=== PATIENT | male | born 1980 | race Caucasian/White ===

== ENCOUNTER 2017-01-11 23:54 | Inpatient (IN) | payer MEDICAID, OTHER ==
[2017-01-12] MEDS ORDERED: Sodium Chloride 0.9% 1,000 ML IV ONE ×2 (00:23→03:28)
--- NOTE | 2017-01-12 00:23 | C.PDOC ---
History Of Present Illness Patient presents to the ER with a complaint of mid epigastric tenderness after drinking over the weekend, associated with some nausea. Denies vomiting, fever, or chills. Time Seen by Provider: 01/12/17 00:22 Chief Complaint (Nursing): Abdominal Pain History Per: Patient History/Exam Limitations: no limitations Onset/Duration Of Symptoms: Days Current Symptoms Are (Timing): Still Present Severity: Moderate Pain Scale Rating Of: 4 Location Of Pain/Discomfort: Epigastric Radiation Of Pain To:: None Quality Of Discomfort: Unable To Describe Associated Symptoms: Nausea. denies: Fever, Chills, Vomiting Exacerbating Factors: None Alleviating Factors: None Last Bowel Movement: Yesterday Recent travel outside of the [place]: No Additional History Per: Patient Past Medical History Reviewed: Historical Data, Nursing Documentation, Vital Signs Vital Signs: Last Vital Signs Temp 97.6 F 01/12/17 02:11 Pulse 82 01/12/17 02:11 Resp 20 01/12/17 02:11 BP 129/76 01/12/17 02:11 Pulse Ox 97 01/12/17 02:11 - Medical History PMH: No Chronic Diseases Surgical History: No Surg Hx Family History: States: No Known Family Hx - Social History Hx Alcohol Use: Yes Hx Substance Use: No - Immunization History Hx Tetanus Toxoid Vaccination: No Hx Influenza Vaccination: No Hx Pneumococcal Vaccination: No Review Of Systems Constitutional: Negative for: Fever, Chills ENT: Negative for: Throat Pain Cardiovascular: Negative for: Chest Pain Respiratory: Negative for: Shortness of Breath Gastrointestinal: Positive for: Nausea, Abdominal Pain. Negative for: Vomiting Genitourinary: Negative for: Dysuria Musculoskeletal: Negative for: Back Pain Skin: Negative for: Rash, Lesions Neurological: Negative for: Weakness Psych: Negative for: Anxiety Physical Exam - Physical Exam Appears: Non-toxic Skin: Warm, Dry Head: Normacephalic Eye(s): bilateral: Normal Inspection Oral Mucosa: Moist Neck: Supple Chest: Symmetrical Cardiovascular: Rhythm Regular Respiratory: No Rales, No Rhonchi, No Wheezing Gastrointestinal/Abdominal: Soft, Tenderness (Mid epigastric), No Guarding, No Rebound Back: No CVA Tenderness Extremity: Normal ROM Extremity: Bilateral: Atraumatic, Normal Color And Temperature, Normal ROM Pulses: Left Dorsalis Pedis: Normal, Right Dorsalis Pedis: Normal Neurological/Psych: Oriented x3, Normal Speech, Normal Cognition Gait: Steady ED Course And Treatment - Laboratory Results Result Diagrams: 01/12/17 00:38 01/12/17 00:38 O2 Sat by Pulse Oximetry: 98 (Room air) Pulse Ox Interpretation: Normal Progress Note: CT abd/pel, blood work, and urinalysis ordered. Pepcid, toradol, zofran, and IV fluids administered. Disposition Discussed With Dr.: Jose J Fitzpatrick Comment: accepted the pt on his service and took over the care at 3:31 AM Doctor Will See Patient In The: ED Counseled Patient/Family Regarding: Studies Performed, Diagnosis - Disposition Referrals: Non [facility] Provider, [Primary Care Provider] - Disposition: HOSPITALIZED Disposition Time: 00:22 Condition: FAIR Forms: [facility] (Macedonian) - POA Present On Arrival: None - Clinical Impression Clinical Impression: Abdominal pain, Acute appendicitis, Pancreatitis, Elevated liver enzymes - Scribe Statement The provider has reviewed the documentation as recorded by the Scribe Chuck Lowery All medical record entries made by the Scribe were at my direction and personally dictated by me. I have reviewed the chart and agree that the record accurately reflects my personal performance of the history, physical exam, medical decision making, and the department course for this patient. I have also personally directed, reviewed, and agree with the discharge instructions and disposition. Decision To Admit - Pt Status Changed To: Hospital Disposition Of: Inpatient - Admit Certification Admit to Inpatient:: After my assessment, the patient will require hospitalization for at least two midnights. This is because of the severity of symptoms shown, intensity of services needed, and/or the medical risk in this patient being treated as an outpatient. - InPatient: Physician Admission Certification:: After my assessment, the patient will require hospitalization for at least two midnights. This is because of the severity of symptoms shown, intensity of services needed, and/or the medical risk in this patient being treated as an outpatient. - . Bed Request Type: Regular Admitting Physician: Jose J Fitzpatrick Patient Diagnosis: Abdominal pain, Acute appendicitis, Pancreatitis, Elevated liver enzymes
[2017-01-12 00:41] LABS: BASO % 0.5 % (0.0-2.0); EOS % 0.1 % (0.0-4.0); HEMATOCRIT 47.1 % (35.0-51.0); LYMPH # 0.6 K/uL (1.0-4.3); MEAN CELL VOLUME 98.9 fL (80.0-94.0); MEAN CORPUSCULAR HGB CONC 34.4 g/dL (33.0-37.0); MONO # 0.7 K/uL (0.0-0.8); MONO % 7.5 % (0.0-10.0); PLATELET COUNT 145 K/uL (130-400); RED CELL DISTRIBUTION WIDTH 14.6 % (11.5-14.5); WHITE BLOOD COUNT 9.5 K/uL (4.8-10.8)
[2017-01-12 00:46] LABS: RBC URINE 3 /hpf (0-3); URINE BILIRUBIN NEGATIVE (NEGATIVE); URINE BLOOD NEGATIVE (NEGATIVE); URINE GLUCOSE (UA) NORMAL (Normal); URINE KETONE 1+ mg/dL (NEGATIVE); URINE LEUKOCYTE ESTERASE NEG Leu/uL (Negative); URINE PROTEIN 2+ mg/dL (NEGATIVE)
[2017-01-12 01:03] LABS: URINE COLOR ORANGE (YELLOW)
[2017-01-12 01:09] LABS: CHLORIDE 95 mmol/L (98-107); GFR AFRICAN-AMERICAN > 60; POTASSIUM 3.9 mmol/L (3.6-5.2); SODIUM 134 mmol/L (132-148)
[2017-01-12 01:10] LABS: ALB/GLOB RATIO 1.1 (1.0-2.1); ALCOHOL SERUM < 10 mg/dl (0-10); ALKALINE PHOSPHATASE 82 U/L (38-126); ALT/SGPT 899 U/L (21-72); BILIRUBIN,TOTAL 3.2 mg/dL (0.2-1.3); BLOOD UREA NITROGEN 9 mg/dL (9-20); CALCIUM 9.4 mg/dl (8.6-10.4); CARBON DIOXIDE 25 mmol/L (22-30); GLUCOSE,RANDOM 125 mg/dL (75-110); NEUTROPHIL 78 % (50-75); TOTAL CELLS COUNTED 100; TOTAL PROTEIN 9.1 g/dL (6.3-8.3)
[2017-01-12 01:22] LABS: AST/SGOT 1180 U/L (17-59)
[2017-01-12] MEDS ORDERED: Iodixanol 320 MG/ML 100 ML BOTTLE IV ONE (02:09)
--- NOTE | 2017-01-12 03:07 | CT ---
EXAM: CT Abdomen and Pelvis With Intravenous Contrast CLINICAL HISTORY: 36 years old, male; Pain; Abdominal pain; Additional info: Abd pain, elevated lipase TECHNIQUE: Axial computed tomography images of the abdomen and pelvis with intravenous contrast. All CT scans at this facility use one or more dose reduction techniques, viz.: automated exposure control; ma/kV adjustment per patient size (including targeted exams where dose is matched to indication; i.e. head); or iterative reconstruction technique. Coronal and sagittal reformatted images were created and reviewed. CONTRAST: 100 mL of [id number] administered intravenously. COMPARISON: No relevant prior studies available. FINDINGS: Lower thorax: The bilateral lung bases are clear. ABDOMEN: Liver: No acute findings. Gallbladder and bile ducts: The gallbladder is decompressed. No calcified stones. No significant intra- or extrahepatic biliary ductal dilation. Pancreas: Enhances homogeneously. No ductal dilation. No discrete mass. Spleen: No acute findings. Adrenals: No acute findings. Kidneys and ureters: No acute findings. No hydronephrosis or renal calculi. No discrete solid mass. PELVIS: Bladder: No acute findings. Reproductive: No acute findings. Appendix: The appendix is distended and fluid-filled, and measuring up to 10 mm in width. Trace surrounding periappendiceal inflammation is noted. The appendix is best visualized on series 601, image 57. Trace free fluid within the right paracolic gutter. ABDOMEN and PELVIS: Stomach and bowel: No obstruction. No mucosal thickening. Peritoneum: As above. Lymph nodes: No pathologically enlarged lymph nodes. Vasculature: Unremarkable. Bones: No acute fracture. IMPRESSION: Findings (in the appropriate clinical scenario) which suggest the presence of acute/early appendicitis, for which clinical correlation is needed.
[2017-01-12] MEDS ORDERED: Piperacillin/Tazobact 3.375 gm 100 ML IVPB STA (03:30)
[2017-01-12] MEDS ORDERED: Piperacillin/Tazobact 3.375 gm 100 ML IVPB ONE (03:48)
[2017-01-12] MEDS ORDERED: Sodium Chloride 0.9% 1,000 ML ONE (03:48)
--- NOTE | 2017-01-12 04:40 | CP.PCM.CON ---
Addendum entered and electronically signed by Rachana Wesley 01/12/17 06:23 : Appendicitis: started Ciprofloxacin 400mg IV Q12h and Metronizadole 500mg IV Q8h. Original Note: <Rachana Wesley. - Last Filed: 01/12/17 05:11> History of Present Illness - History of Present Illness History of Present Illness: Patient is a 36 year old male with a past medical history of alcohol abuse, who presents to the ED with abdominal pain. The patient reports he has had intermittent mild abdominal pain for one month. He states it is only "a little pain" midline below his umbilicus and does not radiate. Patient also states he currently has tremors, 3 episodes of vomiting today, dizziness, headaches, decreased appetite, and two weeks of loose stool. Patient admits to drinking 1 liter of rum daily for the past two weeks. He says he drank 1 bottle starting at noon on Tuesday before coming to the hospital. Patient reports that he drinks heavily about every 3 months. Patient denies having chest pain, palpitations, shortness of breath, nausea, fevers, hemoptysis, dysuria, blood in stool, and cough. 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 absent: Chills, Fever, Weight Gain, Weight Loss - EENT Eyes: absent: Change in Vision Ears: Dizziness - Cardiovascular Cardiovascular: Diaphoresis. absent: Chest Pain, Dyspnea, Leg Edema, Palpitations - Respiratory Respiratory: absent: Cough, Dyspnea - Gastrointestinal Gastrointestinal: Abdominal Pain (midline, below umbilicus), Diarrhea (2 weeks of loose stool), Vomiting (3 episodes). absent: Constipation, Nausea - Genitourinary Genitourinary: absent: Dysuria, Urinary Frequency - Neurological Neurological: Dizziness, Tremor, Weakness. absent: Abnormal Gait, Loss of Vision - Endocrine Endocrine: absent: Fatigue, Palpitations Past Patient History - Past Social History Smoking Status: Never Smoked - PSYCHIATRIC Hx Substance Use: No - SURGICAL HISTORY Hx Surgeries: No - ANESTHESIA Hx Anesthesia: No Meds Allergies/Adverse Reactions: Allergies Allergy/AdvReac Type Severity Reaction Status Date / Time No Known Allergies Allergy Unverified 01/11/17 23:59 Physical Exam - Constitutional Appears: No Acute Distress - Head Exam Head Exam: ATRAUMATIC, NORMAL INSPECTION - Eye Exam Eye Exam: EOMI Pupil Exam: PERRL - ENT Exam ENT Exam: Mucous Membranes Moist - Respiratory Exam Respiratory Exam: Clear to Auscultation Bilateral, NORMAL BREATHING PATTERN. absent: Rhonchi, Wheezes, Respiratory Distress - Cardiovascular Exam Cardiovascular Exam: REGULAR RHYTHM, +S1, +S2. absent: Bradycardia, Tachycardia - GI/Abdominal Exam GI & Abdominal Exam: Firm, Normal Bowel Sounds, Tenderness (midline, below umbilicus). absent: Distended, Guarding, Mass, Rebound, Rigid - Extremities Exam Extremities exam: Positive for: normal inspection, pedal pulses present. Negative for: calf tenderness, pedal edema, tenderness - Neurological Exam Neurological exam: Alert, Oriented x3 - Psychiatric Exam Psychiatric exam: Normal Affect, Normal Mood - Skin Skin Exam: Diaphoretic, Intact, Normal Color, Warm Results - Vital Signs Recent Vital Signs: Last Vital Signs Temp 97.4 F L 01/12/17 04:19 Pulse 77 01/12/17 04:19 Resp 20 01/12/17 04:19 BP 152/89 H 01/12/17 04:19 Pulse Ox 99 01/12/17 04:19 - Labs Result Diagrams: 01/12/17 00:38 01/12/17 00:38 Labs: Laboratory Results - last 24 hr 01/12/17 01/12/17 01/12/17 00:38 00:38 00:38 WBC 9.5 RBC 4.76 Hgb 16.2 Hct 47.1 MCV 98.9 H D MCH 34.0 H MCHC 34.4 RDW 14.6 H Plt Count 145 MPV 10.0 Neut % (Auto) 85.9 H Lymph % (Auto) 6.0 L Hinds % (Auto) 7.5 Eos % (Auto) 0.1 Baso % (Auto) 0.5 Neut # 8.2 H Lymph # 0.6 L Hinds # 0.7 Eos # 0.0 Baso # 0.0 Neutrophils % (Manual) 78 H Band Neutrophils % 4 H Lymphocytes % (Manual) 8 L Monocytes % (Manual) 10 Platelet Estimate Normal Sodium 134 Potassium 3.9 Chloride 95 L Carbon Dioxide 25 Anion Gap 18 BUN 9 Creatinine 0.7 L Est GFR ( Amer) > 60 Est GFR (Non-Af Amer) > 60 Random Glucose 125 H Calcium 9.4 Total Bilirubin 3.2 H AST 1180 H ALT 899 H D Alkaline Phosphatase 82 Total Protein 9.1 H Albumin 4.9 Globulin 4.3 H Albumin/Globulin Ratio 1.1 Lipase 1068 H Urine Color Treasure Urine Clarity Clear Urine pH 7.0 Ur Specific [place] 1.026 Urine Protein 2+ H Urine Glucose (UA) Normal Urine Ketones 1+ H Urine Blood Negative Urine Nitrate Negative Urine Bilirubin Negative Urine Urobilinogen 4.0 Ur Leukocyte Esterase Neg Urine RBC (Auto) 3 Ur Squamous Epith Cells < 1 Urine Opiates Screen Urine Methadone Screen Ur Barbiturates Screen Ur Phencyclidine Scrn Ur Amphetamines Screen U Benzodiazepines Scrn U Oth Cocaine Metabols U Cannabinoids Screen Alcohol, Quantitative < 10 01/12/17 00:38 WBC RBC Hgb Hct MCV MCH MCHC RDW Plt Count MPV Neut % (Auto) Lymph % (Auto) Hinds % (Auto) Eos % (Auto) Baso % (Auto) Neut # Lymph # Hinds # Eos # Baso # Neutrophils % (Manual) Band Neutrophils % Lymphocytes % (Manual) Monocytes % (Manual) Platelet Estimate Sodium Potassium Chloride Carbon Dioxide Anion Gap BUN Creatinine Est GFR ( Amer) Est GFR (Non-Af Amer) Random Glucose Calcium Total Bilirubin AST ALT Alkaline Phosphatase Total Protein Albumin Globulin Albumin/Globulin Ratio Lipase Urine Color Urine Clarity Urine pH Ur Specific [place] Urine Protein Urine Glucose (UA) Urine Ketones Urine Blood Urine Nitrate Urine Bilirubin Urine Urobilinogen Ur Leukocyte Esterase Urine RBC (Auto) Ur Squamous Epith Cells Urine Opiates Screen Negative Urine Methadone Screen Negative Ur Barbiturates Screen Negative Ur Phencyclidine Scrn Negative Ur Amphetamines Screen Negative U Benzodiazepines Scrn Negative U Oth Cocaine Metabols Negative U Cannabinoids Screen Negative Alcohol, Quantitative Assessment & Plan (1) Acute appendicitis Assessment and Plan: Abdominal/pelvic CT: appendix is distended, fluid-filled, 10mm in width; trace periappendiceal inflammation noted; trace free fluid within right paracolic gutter; suggestive of acute/early appendicitis Lipase: 1068 AST: 1180 ALT: 899 UA: 2+ protein, 1+ ketones Pre-op clearance--> Keep NPO; hold anticoagulation EKG: nsr@73bpm CXR: f/u results Scheduled for the OR with Dr. Fitzpatrick 01/12/17 Status: Acute (2) Alcohol abuse Assessment and Plan: CIWA Started Ativan 1mg PO Q4PRN Started Multivitamins + Folic Acid + Thiamine UDS: negative Alcohol quant <10 Status: Acute (3) Prophylactic measure Assessment and Plan: SCDs Hold anticoagulation Keep NPO Pepcid 20mg PO daily CIWA Status: Acute <Marc Escamilla - Last Filed: 01/12/17 06:46> Meds - Medications Medications: Current Medications Famotidine (Pepcid) 20 mg PO BID [facility]FR[facility]O Folic Acid (Folic Acid) 1 mg PO DAILY [facility]FR[facility] Ciprofloxacin (Cipro 400mg/200ml Dsw) 400 mg in 200 mls @ 133 mls/hr IVPB Q12H [facility] ALFREDO Metronidazole (Flagyl) 500 mg in 100 mls @ 100 mls/hr IVPB Q8H [facility] Last Admin: 01/12/17 06:10 Dose: 100 mls/hr Lorazepam (Ativan) 1 mg PO Q4H PRN PRN Reason: Symptoms of alcohol withdrawl Multivitamins (Hexavitamin) 1 tab PO DAILY [facility] Thiamine HCl (Vitamin B1 Tab) 100 mg PO DAILY [facility] Results - Vital Signs Recent Vital Signs: Last Vital Signs Temp 97.6 F 01/12/17 04:48 Pulse 85 01/12/17 05:35 Resp 20 01/12/17 05:35 BP 141/76 01/12/17 04:48 Pulse Ox 98 01/12/17 05:35 - Labs Result Diagrams: 01/12/17 00:38 01/12/17 00:38 Labs: Laboratory Results - last 24 hr 01/12/17 01/12/17 01/12/17 00:38 00:38 00:38 WBC 9.5 RBC 4.76 Hgb 16.2 Hct 47.1 MCV 98.9 H D MCH 34.0 H MCHC 34.4 RDW 14.6 H Plt Count 145 MPV 10.0 Neut % (Auto) 85.9 H Lymph % (Auto) 6.0 L Hinds % (Auto) 7.5 Eos % (Auto) 0.1 Baso % (Auto) 0.5 Neut # 8.2 H Lymph # 0.6 L Hinds # 0.7 Eos # 0.0 Baso # 0.0 Neutrophils % (Manual) 78 H Band Neutrophils % 4 H Lymphocytes % (Manual) 8 L Monocytes % (Manual) 10 Platelet Estimate Normal Sodium 134 Potassium 3.9 Chloride 95 L Carbon Dioxide 25 Anion Gap 18 BUN 9 Creatinine 0.7 L Est GFR ( Amer) > 60 Est GFR (Non-Af Amer) > 60 Random Glucose 125 H Calcium 9.4 Total Bilirubin 3.2 H AST 1180 H ALT 899 H D Alkaline Phosphatase 82 Total Protein 9.1 H Albumin 4.9 Globulin 4.3 H Albumin/Globulin Ratio 1.1 Lipase 1068 H Urine Color Treasure Urine Clarity Clear Urine pH 7.0 Ur Specific [place] 1.026 Urine Protein 2+ H Urine Glucose (UA) Normal Urine Ketones 1+ H Urine Blood Negative Urine Nitrate Negative Urine Bilirubin Negative Urine Urobilinogen 4.0 Ur Leukocyte Esterase Neg Urine RBC (Auto) 3 Ur Squamous Epith Cells < 1 Urine Opiates Screen Urine Methadone Screen Ur Barbiturates Screen Ur Phencyclidine Scrn Ur Amphetamines Screen U Benzodiazepines Scrn U Oth Cocaine Metabols U Cannabinoids Screen Alcohol, Quantitative < 10 01/12/17 00:38 WBC RBC Hgb Hct MCV MCH MCHC RDW Plt Count MPV Neut % (Auto) Lymph % (Auto) Hinds % (Auto) Eos % (Auto) Baso % (Auto) Neut # Lymph # Hinds # Eos # Baso # Neutrophils % (Manual) Band Neutrophils % Lymphocytes % (Manual) Monocytes % (Manual) Platelet Estimate Sodium Potassium Chloride Carbon Dioxide Anion Gap BUN Creatinine Est GFR ( Amer) Est GFR (Non-Af Amer) Random Glucose Calcium Total Bilirubin AST ALT Alkaline Phosphatase Total Protein Albumin Globulin Albumin/Globulin Ratio Lipase Urine Color Urine Clarity Urine pH Ur Specific [place] Urine Protein Urine Glucose (UA) Urine Ketones Urine Blood Urine Nitrate Urine Bilirubin Urine Urobilinogen Ur Leukocyte Esterase Urine RBC (Auto) Ur Squamous Epith Cells Urine Opiates Screen Negative Urine Methadone Screen Negative Ur Barbiturates Screen Negative Ur Phencyclidine Scrn Negative Ur Amphetamines Screen Negative U Benzodiazepines Scrn Negative U Oth Cocaine Metabols Negative U Cannabinoids Screen Negative Alcohol, Quantitative Assessment & Plan - Date & Time Date: 01/12/17 (I have seen and examined the patient. I agree with the findings and plan of care as documented by Dr. Wesley. Patient with acute appendicitis. Flagyl and Cipro. To be managed by Surgeon. Symptomatic treatment for now. Also with history of alcohol abuse. CIWA protocol as needed. Monitor for acute changes.) Time: 06:45 Attending/Attestation - Attestation I have personally seen and examined this patient.: Yes I have fully participated in the care of the patient.: Yes I have reviewed all pertinent clinical information: Yes
[2017-01-12] MEDS: metroNIDAZOLE IV 500 mg/100 ml 500 MG/100 ML BAG IVPB SCH ×3 (06:10→22:28)
[2017-01-12] MEDS ORDERED: Sodium Chloride 0.9% 1,000 ML IV SCH (07:00)
--- NOTE | 2017-01-12 07:03 | CP.PCM.PN ---
<Claudia Patel - Last Filed: 01/12/17 09:48> Subjective - Date & Time of Evaluation Date of Evaluation: 01/12/17 Time of Evaluation: 07:00 - Subjective Subjective: Medicine Note for Dr. Joe Goncalves Patient was seen and examined at bedside. Patient is NPO for lab appy today with Dr. Fitzpatrick. Denied any fever, chills, headache, chest pain, SOB, abdominal pain, n/v/d/c, or urinary symptoms. Objective - Vital Signs/Intake and Output Vital Signs (last 24 hours): Temp Pulse Resp BP Pulse Ox 97.6 F 85 20 141/76 98 01/12/17 04:48 01/12/17 05:35 01/12/17 05:35 01/12/17 04:48 01/12/17 05:35 - Medications Medications: Current Medications Famotidine (Pepcid) 20 mg PO BID LUIS ALFREDO Folic Acid (Folic Acid) 1 mg PO DAILY [facility] ALFREDO Ciprofloxacin (Cipro 400mg/200ml Dsw) 400 mg in 200 mls @ 133 mls/hr IVPB Q12H [facility] ALFREDO Metronidazole (Flagyl) 500 mg in 100 mls @ 100 mls/hr IVPB Q8H [facility] ALFREDO Last Admin: 01/12/17 06:10 Dose: 100 mls/hr Sodium Chloride (Sodium Chloride 0.9%) 1,000 mls @ 100 mls/hr IV .Q10H [facility] ALFREDO Lorazepam (Ativan) 1 mg PO Q4H PRN PRN Reason: Symptoms of alcohol withdrawl Multivitamins (Hexavitamin) 1 tab PO DAILY [facility] ALFREDO Thiamine HCl (Vitamin B1 Tab) 100 mg PO DAILY [facility] ALFREDO - Labs Labs: 01/12/17 00:38 01/12/17 00:38 - Additional Findings Additional findings: - Constitutional Appears: No Acute Distress - Head Exam Head Exam: ATRAUMATIC, NORMAL INSPECTION - Eye Exam Eye Exam: EOMI Pupil Exam: PERRL - ENT Exam ENT Exam: Mucous Membranes Moist - Respiratory Exam Respiratory Exam: Clear to Auscultation Bilateral, NORMAL BREATHING PATTERN. absent: Rhonchi, Wheezes, Respiratory Distress - Cardiovascular Exam Cardiovascular Exam: REGULAR RHYTHM, +S1, +S2. absent: Bradycardia, Tachycardia - GI/Abdominal Exam GI & Abdominal Exam: Firm, Normal Bowel Sounds, Tenderness (midline, below umbilicus). absent: Distended, Guarding, Mass, Rebound, Rigid - Extremities Exam Extremities exam: Positive for: normal inspection, pedal pulses present. Negative for: calf tenderness, pedal edema, tenderness - Neurological Exam Neurological exam: Alert, Oriented x3 - Psychiatric Exam Psychiatric exam: Normal Affect, Normal Mood Assessment and Plan - Assessment and Plan (Free Text) Plan: Acute appendicitis NPO. Scheduled for the OR with Dr. Fitzpatrick 01/12/17 afebrile, no leukocytosis, left shift with bandemia Abdominal/Pelvis CT: appendix is distended, fluid-filled, 10mm in width; trace periappendiceal inflammation noted; trace free fluid within right paracolic gutter; suggestive of acute/early appendicitis Lipase: 1068, T. Bili 3.2, with transaminitis Started Ciprofloxacin 400mg IV Q12h and Metronizadole 500mg IV Q8h 01/12/17 Pre-op clearance Keep NPO; hold anticoagulation EKG: NSR@73bpm CXR: f/u results Coags ordered Alcohol abuse CIWA Started Ativan 1mg PO Q4PRN Started NS + Multivitamins + Folic Acid + Thiamine UDS: negative Alcohol quant <10 Transaminitis AST/ALT: 1180/899 Continue to monitor F/U hep panel/ HIV Pancreatitis Lipase 1068 Started IV NS@200mls/hr Elevated Total Bilirubin Total Bilirubin 3.2 Continue to monitor Prophylactic measure GI PPX: Pepcid 20mg PO daily DVT PPX:SCDs, Hold anticoagulation Kept NPO DW Amanda Romeo DO, PGY-1 <Yoshi Goncalves - Last Filed: 01/12/17 18:58> Objective - Vital Signs/Intake and Output Vital Signs (last 24 hours): Temp Pulse Resp BP Pulse Ox 97.9 F 67 19 130/70 100 01/12/17 17:58 01/12/17 18:45 01/12/17 18:45 01/12/17 18:45 01/12/17 18:45 - Medications Medications: Current Medications Famotidine (Pepcid) 20 mg PO BID [facility] Last Admin: 01/12/17 09:12 Dose: 20 mg Folic Acid (Folic Acid) 1 mg PO DAILY [facility] Last Admin: 01/12/17 09:12 Dose: 1 mg Hydromorphone HCl (Dilaudid) 0.5 mg IVP Q5M PRN PRN Reason: Pain, severe (8-10) Stop: 01/12/17 20:01 Ciprofloxacin (Cipro 400mg/200ml Dsw) 400 mg in 200 mls @ 133 mls/hr IVPB Q12H [facility] Last Admin: 01/12/17 07:32 Dose: 133 mls/hr Metronidazole (Flagyl) 500 mg in 100 mls @ 100 mls/hr IVPB Q8H [facility] Last Admin: 01/12/17 13:27 Dose: 100 mls/hr Sodium Chloride (Sodium Chloride 0.9%) 1,000 mls @ 200 mls/hr IV .Q5H [facility] Last Admin: 01/12/17 09:49 Dose: 200 mls/hr Lorazepam (Ativan) 1 mg PO Q4H PRN PRN Reason: Symptoms of alcohol withdrawl Midazolam HCl (Versed Inj) 4 mg IVP ONCE PRN PRN Reason: Agitation/Restlessness Last Admin: 01/12/17 18:08 Dose: 4 mg Morphine Sulfate (Morphine) 1 mg IVP Q4H PRN PRN Reason: Pain, moderate (4-7) Multivitamins (Hexavitamin) 1 tab PO DAILY [facility] Last Admin: 01/12/17 09:12 Dose: 1 tab Thiamine HCl (Vitamin B1 Tab) 100 mg PO DAILY [facility] Last Admin: 01/12/17 09:12 Dose: 100 mg - Labs Labs: 01/12/17 00:38 01/12/17 00:38 Attending/Attestation - Attestation I have personally seen and examined this patient.: Yes I have fully participated in the care of the patient.: Yes I have reviewed all pertinent clinical information, including history, physical exam and plan: Yes Notes (Text): 01/12/17 18:57 Patient was seen at 7:45 AM 01/12/17. Exam, Assessment and Plan were thoroughly gone over with the resident. Yoshi Goncalves D.O.
[2017-01-12] MEDS: Ciprofloxacin 400mg/200ml D5W 400 MG/200 ML BAG IVPB SCH ×2 (07:32→20:35)
--- NOTE | 2017-01-12 08:49 | RAD ---
HISTORY: pre-op clearance COMPARISON: Abdomen obstructive series with chest 09/08/2015. FINDINGS: LUNGS: No active pulmonary disease. PLEURA: No significant pleural effusion identified, no pneumothorax apparent. CARDIOVASCULAR: Normal. OSSEOUS STRUCTURES: No significant abnormalities. VISUALIZED UPPER ABDOMEN: Right hemidiaphragm elevation is noted in the interval of uncertain origin. OTHER FINDINGS: None. IMPRESSION: No acute infiltrate or pleural effusion bilaterally. No cardiovascular pathology appreciated grossly. Right diaphragm elevation is noted, of uncertain origin.
[2017-01-12] MEDS: Multiple Vitamins Tab PO SCH (09:12)
[2017-01-12] MEDS: Sodium Chloride 0.9% 1,000 ML IV SCH ×2 (09:49→23:33)
[2017-01-12] MEDS ORDERED: Lactated Ringer's 1,000 ML IV ONE ×2 (16:45→18:45)
[2017-01-12] MEDS ORDERED: Propofol 10 mg/ml Inj (20 ML) ONE ×2 (16:55→17:21)
[2017-01-12] MEDS ORDERED: Midazolam 2 MG/2 ML VIAL ONE ×3 (16:55→18:08)
[2017-01-12] MEDS ORDERED: Bupivacaine HCl 0.25% PF (10 ml) Inj ONE (17:03)
[2017-01-12] MEDS ORDERED: Neostigmine Methylsulfate 3mg/3ml Syringe IV ONE (17:39)
[2017-01-12] MEDS ORDERED: HYDROmorphone 0.5 mg/0.5 ml ISec IVP PRN (18:01)
[2017-01-12] MEDS ORDERED: Midazolam 2 MG/2 ML VIAL IVP PRN (18:01)
[2017-01-13] MEDS: Sodium Chloride 0.9% 1,000 ML IV SCH ×4 (00:45→21:25)
--- NOTE | 2017-01-13 02:39 | OP ---
PROCEDURE DATE: 01/12/2017 PREOPERATIVE DIAGNOSIS: Acute appendicitis. POSTOPERATIVE DIAGNOSIS: Acute appendicitis. PROCEDURE PERFORMED: Appendectomy. SURGEON: Jose J Fitzpatrick MD TYPE OF ANESTHESIA: General. ESTIMATED BLOOD LOSS: 30 mL. POSTOPERATIVE CONDITION: Stable. INDICATIONS FOR SURGERY: This is a 36-year-old male who presented with a right lower quadrant pain, found to have appendicitis on CAT scan, now taken to the operating room on the day of admission for appendectomy. GROSS FINDINGS: The appendix was acutely inflamed. There were no abnormal findings. Because of preexisting liver disease, it was felt that an open appendectomy would be quicker with less anesthesia time. DESCRIPTION OF PROCEDURE: The patient was taken to the operating room, general anesthesia was administered. The abdomen was prepped and draped. The abdomen was entered through a transverse muscle splitting incision in the right lower quadrant. The appendix was divided between clamps with Vicryl ties. The base of the appendix was divided using TA-30 stapler. The right lower quadrant was irrigated with the saline solution. The abdominal wall incision was closed with running Vicryl and the skin was closed with skin clips. The patient tolerated the procedure well, returned to recovery room in stable condition. Jose J Fitzpatrick MD
[2017-01-13] MEDS: metroNIDAZOLE IV 500 mg/100 ml 500 MG/100 ML BAG IVPB SCH ×2 (05:18→14:18)
--- NOTE | 2017-01-13 06:59 | CP.PCM.PN ---
Addendum entered and electronically signed by Claudia Patel DO 01/13/17 09:57 : Medicine team will continue to follow this patient while he is on med/surg floor. As per psychiatry possible transfer tomorrow to detox. Addendum entered and electronically signed by Claudia Patel DO 01/13/17 09:05 : Patient is actively, withdrawing from alcohol. We started an Ativan Taper. And we would like to transfer him to psychiatry for detox. Psych consult - Dr. Hong - help appreciated Original Note: <Claudia Patel - Last Filed: 01/13/17 08:49> Subjective - Date & Time of Evaluation Date of Evaluation: 01/13/17 Time of Evaluation: 07:00 - Subjective Subjective: Medicine Note for Dr. Joe Goncalves Patient was seen and examined at bedside. Patient is s/p appendectomy. Patient reports pain is well controlled, tolerating liquid diet. Denied any fever, chills, headache, chest pain, SOB, abdominal pain, n/v/d/c, or urinary symptoms. Objective - Vital Signs/Intake and Output Vital Signs (last 24 hours): Temp Pulse Resp BP Pulse Ox 99.9 F H 97 H 20 129/80 96 01/12/17 23:05 01/12/17 23:05 01/12/17 23:05 01/12/17 23:05 01/12/17 23:05 Intake and Output: 01/12/17 01/13/17 18:59 06:59 Intake Total 2100 Output Total 1200 Balance 900 - Medications Medications: Current Medications Famotidine (Pepcid) 20 mg PO BID [facility] Last Admin: 01/12/17 19:07 Dose: Not Given Folic Acid (Folic Acid) 1 mg PO DAILY [facility] Last Admin: 01/12/17 09:12 Dose: 1 mg Ciprofloxacin (Cipro 400mg/200ml Dsw) 400 mg in 200 mls @ 133 mls/hr IVPB Q12H [facility] Last Admin: 01/12/17 20:35 Dose: 133 mls/hr Metronidazole (Flagyl) 500 mg in 100 mls @ 100 mls/hr IVPB Q8H [facility] Last Admin: 01/13/17 05:18 Dose: 100 mls/hr Sodium Chloride (Sodium Chloride 0.9%) 1,000 mls @ 200 mls/hr IV .Q5H [facility] Last Admin: 01/13/17 05:17 Dose: 200 mls/hr Lorazepam (Ativan) 1 mg PO Q4H PRN PRN Reason: Symptoms of alcohol withdrawl Last Admin: 01/13/17 06:22 Dose: 1 mg Midazolam HCl (Versed Inj) 4 mg IVP ONCE PRN PRN Reason: Agitation/Restlessness Last Admin: 01/12/17 18:08 Dose: 4 mg Morphine Sulfate (Morphine) 1 mg IVP Q4H PRN PRN Reason: Pain, moderate (4-7) Multivitamins (Hexavitamin) 1 tab PO DAILY [facility] Last Admin: 01/12/17 09:12 Dose: 1 tab Thiamine HCl (Vitamin B1 Tab) 100 mg PO DAILY [facility] Last Admin: 01/12/17 09:12 Dose: 100 mg - Labs Labs: 01/12/17 00:38 01/12/17 00:38 - Additional Findings Additional findings: - Constitutional Appears: No Acute Distress - Head Exam Head Exam: ATRAUMATIC, NORMAL INSPECTION - Eye Exam Eye Exam: EOMI Pupil Exam: PERRL - ENT Exam ENT Exam: Mucous Membranes Moist - Respiratory Exam Respiratory Exam: Clear to Auscultation Bilateral, NORMAL BREATHING PATTERN. absent: Rhonchi, Wheezes, Respiratory Distress - Cardiovascular Exam Cardiovascular Exam: REGULAR RHYTHM, +S1, +S2. absent: Bradycardia, Tachycardia - GI/Abdominal Exam GI & Abdominal Exam: Firm, Normal Bowel Sounds, Tenderness (midline, below umbilicus). absent: Distended, Guarding, Mass, Rebound, Rigid - Extremities Exam Extremities exam: Positive for: normal inspection, pedal pulses present. Negative for: calf tenderness, pedal edema, tenderness - Neurological Exam Neurological exam: Alert, Oriented x3 - Psychiatric Exam Psychiatric exam: Normal Affect, Normal Mood Assessment and Plan - Assessment and Plan (Free Text) Plan: Acute appendicitis s/p appendectomy 01/12/17 afebrile, no leukocytosis, left shift with bandemia Abdominal/Pelvis CT: appendix is distended, fluid-filled, 10mm in width; trace periappendiceal inflammation noted; trace free fluid within right paracolic gutter; suggestive of acute/early appendicitis Lipase: 1068, T. Bili 3.2, with transaminitis Diet advanced as per Surgery, primary team Started Ciprofloxacin 400mg IV Q12h and Metronizadole 500mg IV Q8h 01/12/17 Pre-op clearance Keep NPO; hold anticoagulation EKG: NSR@73bpm CXR: f/u results Coags ordered Alcohol abuse CIWA Started Ativan 1mg PO Q4PRN Started NS + Multivitamins + Folic Acid + Thiamine UDS: negative Alcohol quant <10 Transaminitis AST/ALT: 1180/899 Downtrending Continue to monitor HIV- negative Hep panel- Hep Bs antigen +, + neutralization. Patient will need to follow up with GI for further workup and management of his Hepatitis B. Pancreatitis Lipase 1068 Started IV NS@200mls/hr Downtrending Elevated Total Bilirubin Total Bilirubin 3.2 Continue to monitor Downtrending Prophylactic measure GI PPX: Pepcid 20mg PO daily DVT PPX:SCDs, Hold anticoagulation Patient is medically stable for discharge once he tolerates his regular diet. Patient will need to follow up in the [facility] to establish care and receive a GI referral for further care and management of his Hepatitis B. Patient is recommended to attend Alcoholic Anonymous to encourage alcohol cessation. Medicine Team is signing off this patient. Thank you for the consult. DW Amanda Romeo DO, PGY-1 <Yoshi Goncalves - Last Filed: 01/13/17 17:58> Objective - Vital Signs/Intake and Output Vital Signs (last 24 hours): Temp Pulse Resp BP Pulse Ox 98.6 F 119 H 20 141/90 98 01/13/17 08:42 01/13/17 08:42 01/13/17 08:42 01/13/17 08:42 01/13/17 08:42 Intake and Output: 01/13/17 01/13/17 06:59 18:59 Intake Total 2100 Output Total 1200 Balance 900 - Medications Medications: Current Medications Famotidine (Pepcid) 20 mg PO BID [facility] Last Admin: 01/13/17 09:35 Dose: 20 mg Folic Acid (Folic Acid) 1 mg PO DAILY [facility] Last Admin: 01/13/17 09:35 Dose: 1 mg Ciprofloxacin (Cipro 400mg/200ml Dsw) 400 mg in 200 mls @ 133 mls/hr IVPB Q12H [facility] Last Admin: 10/19/17 08:18 Dose: 133 mls/hr Metronidazole (Flagyl) 500 mg in 100 mls @ 100 mls/hr IVPB Q8H [facility] Last Admin: 01/13/17 14:18 Dose: 100 mls/hr Sodium Chloride (Sodium Chloride 0.9%) 1,000 mls @ 200 mls/hr IV .Q5H [facility] Last Admin: 01/13/17 05:17 Dose: 200 mls/hr Lorazepam (Ativan) 1 mg IVP Q6H PRN PRN Reason: Symptoms of alcohol withdrawl Lorazepam (Ativan) 2 mg PO Q4H [facility] PRN Reason: Taper Stop: 01/18/17 10:59 Last Admin: 01/13/17 14:16 Dose: 2 mg Midazolam HCl (Versed Inj) 4 mg IVP ONCE PRN PRN Reason: Agitation/Restlessness Last Admin: 01/12/17 18:08 Dose: 4 mg Morphine Sulfate (Morphine) 1 mg IVP Q4H PRN PRN Reason: Pain, moderate (4-7) Multivitamins (Hexavitamin) 1 tab PO DAILY [facility] Last Admin: 01/13/17 09:35 Dose: 1 tab Thiamine HCl (Vitamin B1 Tab) 100 mg PO BID [facility] - Labs Labs: 01/13/17 06:45 01/13/17 06:45 PT 12.1 SECONDS (9.7-12.2) 01/13/17 06:45 INR 1.1 01/13/17 06:45 APTT 26 SECONDS (21-34) 01/13/17 06:45 Attending/Attestation - Attestation I have personally seen and examined this patient.: Yes I have fully participated in the care of the patient.: Yes I have reviewed all pertinent clinical information, including history, physical exam and plan: Yes Notes (Text): 01/13/17 17:55 Patient was seen and examined at 8:15 AM 01/13/17. Patient was tremulous and alcohol withdrawl was likely considering his history. Therefore he was started on Ativan Taper and Psychiatry was consulted. Will transfer to In-Patient Psychiatry on 08/14/[address] Fitzpatrick was notified by me via phone 5:50 PM and we will transfer service to Hospitalist Team if patient does agree to go to In-Patient Psychiatry. Dr. Fitzpatrick revealed that appendix was not gangrenous and therefore IV antibiotics were discontinued.
[2017-01-13 07:11] LABS: INR 1.1
[2017-01-13 07:30] LABS: BASO % 0.4 % (0.0-2.0); CHLORIDE 95 mmol/L (98-107); EOS % 0.2 % (0.0-4.0); HEMATOCRIT 45.3 % (35.0-51.0); LYMPH # 0.9 K/uL (1.0-4.3); LYMPH % 8.7 % (20.0-40.0); MEAN CORPUSCULAR HEMOGLOBIN 34.7 pg (27.0-31.0); MEAN CORPUSCULAR HGB CONC 34.3 g/dL (33.0-37.0); MEAN PLATELET VOLUME 10.1 fL (7.2-11.7); MONO # 1.1 K/uL (0.0-0.8); MONO % 10.4 % (0.0-10.0); PLATELET COUNT 153 K/uL (130-400); RED CELL DISTRIBUTION WIDTH 14.4 % (11.5-14.5); WHITE BLOOD COUNT 10.6 K/uL (4.8-10.8)
[2017-01-13 07:31] LABS: POTASSIUM 4.1 mmol/L (3.6-5.2); SODIUM 135 mmol/L (132-148)
[2017-01-13 07:33] LABS: ALB/GLOB RATIO 1.1 (1.0-2.1); AMYLASE 136 U/L (30-110); AST/SGOT 509 U/L (17-59); BILIRUBIN,TOTAL 2.7 mg/dL (0.2-1.3); BLOOD UREA NITROGEN 8 mg/dL (9-20); CARBON DIOXIDE 26 mmol/L (22-30); GFR AFRICAN-AMERICAN > 60; GLUCOSE,RANDOM 100 mg/dL (75-110); TOTAL PROTEIN 8.6 g/dL (6.3-8.3)
[2017-01-13 07:34] LABS: ALKALINE PHOSPHATASE 76 U/L (38-126); ALT/SGPT 672 U/L (21-72); CALCIUM 9.1 mg/dl (8.6-10.4); MAGNESIUM 1.5 mg/dL (1.6-2.3); PHOSPHOROUS 4.2 mg/dL (2.5-4.5)
[2017-01-13 07:38] LABS: MEAN CELL VOLUME 100.9 fL (80.0-94.0)
[2017-01-13] MEDS: Ciprofloxacin 400mg/200ml D5W 400 MG/200 ML BAG IVPB SCH (08:18)
[2017-01-13 09:23] LABS: NEUTROPHIL 76 % (50-75); TOTAL CELLS COUNTED 100
[2017-01-13] MEDS: Multiple Vitamins Tab PO SCH (09:35)
--- NOTE | 2017-01-13 10:53 | PCM.PSYCH ---
Initial Psychiatric Evaluation - Initial Psychiatric Evaluation Type of Admission: Voluntary Chief Complaint (in patient's own words): "I'm tired" History of Present Illness and Precipitating Events: The patient is seen, chart reviewed and case discussed. Next line consultation was requested for patient's alcohol withdrawal. This is a 36-year-old male, single with 2 children aged 14 and 15 who are with their mother reviewed the patient first said he lives alone but there was a friend who he allowed us to speak to and she said that the patient has a girlfriend and lives with her. 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 He is documented and is from [facility]. The patient is a poor historian due to confusion from alcohol withdrawal and at the same time he minimizes his use and he only states that he drinks 4-5 beers over the weekend. His friend however told us that he drinks much more than that. He denies drug use but smokes cigarettes. No psychiatric symptoms. Currently, he is tremulous, somewhat diaphoretic and is confused: he thought he was at home and couldn;t tell the date, month, year. He was able to repeat 2 of the 3 words in immediate recall and none of them in 5 min. No nystagmus/severe ataxia. Past psych history: Denies. No reported past alcohol treatment either. Medical history: Appendectomy yesterday Family psych hx: Unknown Current Medications: Active Medications Generic Name Dose Route Start Last Admin Trade Name Freq PRN Reason Stop Dose Admin Famotidine 20 mg 01/12/17 10:00 01/13/17 09:35 Pepcid PO 20 mg BID [facility] Administration Folic Acid 1 mg 01/12/17 10:00 01/13/17 09:35 Folic Acid PO 1 mg DAILY [facility] Administration Ciprofloxacin 400 mg in 200 mls @ 133 mls/hr 01/12/17 08:00 01/13/17 08:18 Cipro 400mg/200ml Dsw IVPB 133 mls/hr Q12H [facility] Administration Metronidazole 500 mg in 100 mls @ 100 mls/hr 01/12/17 06:00 01/13/17 05:18 Flagyl IVPB 100 mls/hr Q8H [facility] Administration Sodium Chloride 1,000 mls @ 200 mls/hr 01/12/17 09:45 01/13/17 05:17 Sodium Chloride 0.9% IV 200 mls/hr .Q5H [facility] Administration Lorazepam 2 mg 01/13/17 10:00 01/13/17 09:35 Ativan PO 01/18/17 09:59 2 mg Q8H [facility] Administration Taper Lorazepam 1 mg 01/13/17 10:52 Ativan IVP Q6H PRN Symptoms of alcohol withdrawl Midazolam HCl 4 mg 01/12/17 18:01 01/12/17 18:08 Versed Inj IVP 4 mg ONCE PRN Administration Agitation/Restlessness Morphine Sulfate 1 mg 01/12/17 08:30 Morphine IVP Q4H PRN Pain, moderate (4-7) Multivitamins 1 tab 01/12/17 10:00 01/13/17 09:35 Hexavitamin PO 1 tab DAILY [facility] Administration Thiamine HCl 100 mg 01/12/17 10:00 01/13/17 10:31 Vitamin B1 Tab PO 100 mg DAILY [facility] Administration Past Psychiatric History - Past Psychiatric History Previous Treatment History: None Pertinent Medical Hx (Current Medical&Sleep Prob, Allergies): Allergies Allergy/AdvReac Type Severity Reaction Status Date / Time No Known Allergies Allergy Unverified 01/11/17 23:59 No Known Home Med 01/12/17 Review of Systems - Neurological Neurological: Confusion, Tremor - Psychiatric Psychiatric: Abnormal Sleep Pattern, Anxiety, Confusion. absent: Homicidal Ideation, Suicidal Ideation Mental Status Examination - Personal Presentation Personal Presentation: Looks stated age - Affect Affect: Constricted - Motor Activity Motor Activity: Other (fidgety) - Reliability in Providing Information Reliability in Providing Information: Poor, due to cognitve impairment - Speech Speech: Disorganized - Mood Mood: Anxious - Formal Thought Process Formal Thought Process: Hallucinations (possible) - Cognitive Functions Orientation: Person (He is only oriented to person, he knew his friend) Sensorium: Drowsy Attention/Concentration: Easily distracted Abstract Thinking: [place] Estimate of Intelligence: Below average Judgement: Imparied, as evidence by: Poor judgement Memory: Recent imparied as evidence by:Inability to complete 3/3 object recall, Remote impaired as evidenced by: Inability to recall historical events - Risk Risk: Elopement, Seizure, Withdrawal, Falls, Diminished functioning - Strength & Assets Inventory Strength & Assets Inventory: Family support, Cooperative - Limitations Limitations: Other DSM 5 DX - DSM 5 DSM 5 Diagnosis: Alcohol withdrawal delirium Alcohol use d/o - severe - Recommended/Plan of Treatment Treatment Recommendations and Plan of Treatment: Ativan detox due to liver: 12-8-6-4-2 mg decreasing fashion As needed medications Gabapentin for augmentation Supportive therapy and psychoeducation [place] for abstinence CBT for relapse prevention Encourage MAT Refer to rehab or IOP Attend self-help groups as well Consider transfer to detox IF he gets better AND agrees (he did not today) Consider IV fluids and ativan if gets worse 34 min
[2017-01-13] MEDS ORDERED: Magnesium Sulfate 1 gm in D5W 1 GM/100 ML BAG IVPB ONE (18:00)
[2017-01-14] MEDS: Sodium Chloride 0.9% 1,000 ML IV SCH ×3 (00:15→08:02)
[2017-01-14] MEDS: Multiple Vitamins Tab PO SCH (10:17)
--- NOTE | 2017-01-14 10:25 | PCM.PYCHPN ---
Psychiatric Progress Note - Psychiatric Progress Note Patient seen today, length of contact: 16 min Patient Chief Complaint: Seen for consult follow up. No response to c/c Problems Identified/Issues Discussed: The pt is seen, chart reviewed and case discussed He is in DT right now: totally confused (he even does NOT recall he had appendectomy the day before yesterday), disoriented, agitated, poor sleep, diaphoretic, etc. Ativan detox is switched to IV protocol as he is spitting pills. Haldol given as yumiko lawson was called, he was combative. Will monitor VS, response, hold ativan only if he is too sedated. Given vitamins also IV and iv fluids Support given Medication Change: Yes Medical Record Reviewed: Yes Mental Status Examination - Cognitive Function Orientation: Person (He is only oriented to person, he knew his friend) Memory: Impaired Attention: Poor Concentration: Poor Association: Loose Fund of Knowledge: Poor - Mood Mood: Other (agitated) - Affect Affect: Constricted - Speech Speech: Slurred - Formal Thought Process Formal Thought Process: Other (difficult to assess) - Suicidal Ideation Suicidal Ideation: No - Homicidal Ideation Homicidal Ideation: No Goal/Treatment Plan - Goal/Treatment Plan Need for Continued Stay: Other (medical tx of DT) Progress Toward Problem(s) and Goals/Treatment Plan: Ativan detox IV: 12-8-6-4-2 mg decreasing fashion As needed medications Gabapentin for augmentation whenPO is ok Supportive therapy and psychoeducation [place] for abstinence CBT for relapse prevention Encourage MAT Refer to rehab or IOP Attend self-help groups as well
--- NOTE | 2017-01-14 10:55 | CP.PCM.CON ---
History of Present Illness - History of Present Illness History of Present Illness: Hospitalist Progress Note Patient was seen and examined at 10:30 AM 01/14/17 662 A 36 year old male who is S/P Open Appendectomy on 01/12/[address] Fitzpatrick. He was scheduled to be discharged on 01/13/17 but was noted to be tremulous and this was likely secondary to Alcohol Withdrawl (drinks 1 liter of Rum daily with last liter on 01/11/17). Therefore Psychiatry was consulted and patient was placed on Ativan Taper. Patient became combative and trying to pull out his IV lines during the night 01/13/17 into 01/14/17 and therefore soft restraints with mittens were placed bilateral UE. Currenty upon FULL ROS (patient was asleep but arousable and calm and answering questions) NO chest pain NO palpitations NO SOB/Cough/Wheezing NO dysphagia/odynophagia NO abdominal pain NO n/v/d/c (last bowel movement was yesterday and it was normal) NO burning/pain with urination NO paresthesias NO headaches NO new changes in vision NO new changes in hearing NO edema Exam: General: Asleep but easily arousable. He is not aware of where he is or why he is here. He is following commands at the time of my exam HEENT: NCA, EOMI, PERRLA, NO lymphadenopathy, NO thyromegaly, NO pharyngeal erythema/exudate, Nasal Turbinates are moist and nonerythematous Cardio: NS1 and NS2, NO M/R/G Resp: CTA B/L, NO R/R/W GI: BSx4, Soft, NT, ND, NO HSM, NO guarding/rebound tenderness, RLQ Surgical Site is clean and without dehiscence/cellulitis Ext: Pulses are strong and equal, NO edema, Capillary Refill is 2 seconds Neuro: CN II through XII are grossly intact Assessment and Plan 1). S/P Open Appendectomy 01/12/[address] Fitzpatrick on evening of 01/13/17 and he explained that there was no necrosis of the appendix. Therefore IV antibiotics were discontinued. He will need follow up with Dr. Fitzpatrick upon discharge. 2). Alcohol Withdrawl Please see details in HPI above NPO for now Change IVF to Bannana Bag containing MVI, Folic Acid, and Thiamine @ 100 ml/hr Ativan Taper Once stable then transfer to [address] [place] [address] Dr. Hong help is greatly appreciated 3). Elevated LFTs/T.Bili/Lipase/Amylase NO pathology (other then the Appendicitis) noted on CT Abdomen/Pelvis 01/12/17: NO acute liver/gallbladder/pancrease abnormality Secondary to Appendicits? Trending down NPO and Bannana bag for now 4). Hepatitis B+ Patient will need follow up with GI through [facility]. 5). Prophylaxis Pepcid 20 mg PO BID Bilateral SCDs Yohsi Goncalves D.O. Past Patient History - Past Medical History & Family History Past Medical History?: No - Past Social History Smoking Status: Never Smoked - CARDIAC Hx Cardiac Disorders: No - PULMONARY Hx Respiratory Disorders: No - NEUROLOGICAL Hx Neurological Disorder: No - HEENT Hx HEENT Problems: Yes Hx Cataracts: Yes (L Eye) - RENAL Hx Chronic Kidney Disease: No - ENDOCRINE/METABOLIC Hx Endocrine Disorders: No - HEMATOLOGICAL/ONCOLOGICAL Hx Blood Disorders: No - INTEGUMENTARY Hx Dermatological Problems: No - MUSCULOSKELETAL/RHEUMATOLOGICAL Hx Musculoskeletal Disorders: No Hx Falls: No - GASTROINTESTINAL Hx Gastrointestinal Disorders: No - GENITOURINARY/GYNECOLOGICAL Hx Genitourinary Disorders: No - PSYCHIATRIC Hx Psychophysiologic Disorder: No Hx Substance Use: No - SURGICAL HISTORY Hx Surgeries: No - ANESTHESIA Hx Anesthesia: No Hx Anesthesia Reactions: No Hx Malignant Hyperthermia: No Has any member of the family had a problem w/ anesthesia?: No Meds Allergies/Adverse Reactions: Allergies Allergy/AdvReac Type Severity Reaction Status Date / Time No Known Allergies Allergy Unverified 01/11/17 23:59 - Medications Medications: Current Medications Famotidine (Pepcid) 20 mg PO BID [facility] Last Admin: 01/14/17 10:17 Dose: Not Given Haloperidol (Haldol) 5 mg PO Q6H PRN PRN Reason: Agitation Haloperidol Lactate (Haldol) 5 mg IM Q4H PRN PRN Reason: severe agitation Ciprofloxacin (Cipro 400mg/200ml Dsw) 400 mg in 200 mls @ 133 mls/hr IVPB Q12H [facility] Metronidazole (Flagyl) 500 mg in 100 mls @ 100 mls/hr IVPB Q8 [facility] Thiamine HCl 100 mg/ Folic Acid 1 mg/ Multivitamins/Vitamin C 10 ml/ Sodium Chloride 1,011.2 mls @ 150 mls/hr IV .Q6H45M [facility] Lorazepam (Ativan) 1 mg IVP Q4H PRN PRN Reason: Agitation Lorazepam (Ativan) 2 mg IVP Q4H [facility] PRN Reason: Taper Stop: 01/19/17 10:29 Midazolam HCl (Versed Inj) 4 mg IVP ONCE PRN PRN Reason: Agitation/Restlessness Last Admin: 01/12/17 18:08 Dose: 4 mg Morphine Sulfate (Morphine) 1 mg IVP Q4H PRN PRN Reason: Pain, moderate (4-7) Results - Vital Signs Recent Vital Signs: Last Vital Signs Temp 98.4 F 01/14/17 07:20 Pulse 101 H 01/14/17 07:20 Resp 18 01/14/17 07:20 BP 156/77 H 01/14/17 07:20 Pulse Ox 94 L 01/14/17 07:20 - Labs Result Diagrams: 01/14/17 11:23 01/14/17 11:23
[2017-01-14] MEDS ORDERED: Folic Acid 1 MG, Thiamine 100 MG, Multivitamin (MVI) 10 ML in Dextrose 5% In Water 1,00... IV SCH (11:00)
[2017-01-14] MEDS ORDERED: Ciprofloxacin 400mg/200ml D5W 400 MG/200 ML BAG IVPB SCH (11:00)
[2017-01-14] MEDS ORDERED: Thiamine 100 MG, Folic Acid 1 MG, Multivitamin (MVI) 10 ML in Sodium Chloride 0.9% 1,00... IV SCH (11:00)
[2017-01-14 11:27] LABS: BASO # 0.1 K/uL (0.0-0.2); BASO % 0.9 % (0.0-2.0); EOS % 0.5 % (0.0-4.0); LYMPH % 11.3 % (20.0-40.0); MEAN CELL VOLUME 99.4 fL (80.0-94.0); MEAN CORPUSCULAR HEMOGLOBIN 34.3 pg (27.0-31.0); MEAN CORPUSCULAR HGB CONC 34.5 g/dL (33.0-37.0); MEAN PLATELET VOLUME 9.9 fL (7.2-11.7); MONO # 1.2 K/uL (0.0-0.8); MONO % 14.3 % (0.0-10.0); RED CELL DISTRIBUTION WIDTH 14.1 % (11.5-14.5); WHITE BLOOD COUNT 8.4 K/uL (4.8-10.8)
[2017-01-14 11:41] LABS: CHLORIDE 103 mmol/L (98-107); SODIUM 137 mmol/L (132-148)
[2017-01-14 11:42] LABS: POTASSIUM 3.4 mmol/L (3.6-5.2)
[2017-01-14 11:43] LABS: GFR AFRICAN-AMERICAN > 60
[2017-01-14 11:44] LABS: ALKALINE PHOSPHATASE 67 U/L (38-126); ALT/SGPT 447 U/L (21-72); AST/SGOT 242 U/L (17-59); BILIRUBIN,TOTAL 1.7 mg/dL (0.2-1.3); BLOOD UREA NITROGEN 12 mg/dL (9-20); CARBON DIOXIDE 24 mmol/L (22-30); GLUCOSE,RANDOM 87 mg/dL (75-110); TOTAL PROTEIN 7.7 g/dL (6.3-8.3)
[2017-01-14 11:45] LABS: PHOSPHOROUS 3.4 mg/dL (2.5-4.5)
[2017-01-14] MEDS: Folic Acid 1 MG, Thiamine 100 MG, Multivitamin (MVI) 10 ML in Dextrose 5% In Water 1,00... IV SCH (12:11)
[2017-01-14] MEDS ORDERED: metroNIDAZOLE IV 500 mg/100 ml 500 MG/100 ML BAG IVPB SCH (14:00)
--- NOTE | 2017-01-14 15:58 | CP.PCM.PN ---
Subjective - Date & Time of Evaluation Date of Evaluation: 01/14/17 (Anesthesia post operative note) Time of Evaluation: 16:40 - Subjective Subjective: Patient seen post operatively. Vital signs stable. Patient sleeping. Objective - Vital Signs/Intake and Output Vital Signs (last 24 hours): Temp Pulse Resp BP Pulse Ox 99.0 F 89 20 138/87 97 01/14/17 15:19 01/14/17 15:19 01/14/17 15:19 01/14/17 15:19 01/14/17 15:19 Intake and Output: 01/14/17 01/14/17 06:59 18:59 Intake Total 1920 1200 Output Total 250 250 Balance 1670 950 - Medications Medications: Current Medications Famotidine (Pepcid) 20 mg PO BID [facility] Last Admin: 01/14/17 10:17 Dose: Not Given Haloperidol (Haldol) 5 mg PO Q6H PRN PRN Reason: Agitation Haloperidol Lactate (Haldol) 5 mg IM Q4H PRN PRN Reason: severe agitation Folic Acid 1 mg/ Thiamine HCl 100 mg/ Multivitamins/Vitamin C 10 ml/ Dextrose 1 ,011.2 mls @ 100 mls/hr IV DAILY@1200 [facility] Last Admin: 01/14/17 12:11 Dose: 100 mls/hr Lorazepam (Ativan) 1 mg IVP Q4H PRN PRN Reason: Agitation Lorazepam (Ativan) 2 mg IVP Q4H [facility] PRN Reason: Taper Stop: 01/19/17 10:29 Last Admin: 01/14/17 14:17 Dose: 2 mg - Labs Labs: 01/14/17 11:23 01/14/17 11:23 PT 12.1 SECONDS (9.7-12.2) 01/13/17 06:45 INR 1.1 01/13/17 06:45 APTT 26 SECONDS (21-34) 01/13/17 06:45
[2017-01-15 06:21] LABS: BASO # 0.1 K/uL (0.0-0.2); EOS # 0.1 K/uL (0.0-0.7); EOS % 1.5 % (0.0-4.0); HEMATOCRIT 43.5 % (35.0-51.0); LYMPH # 1.1 K/uL (1.0-4.3); LYMPH % 17.9 % (20.0-40.0); MEAN CELL VOLUME 100.6 fL (80.0-94.0); MEAN CORPUSCULAR HEMOGLOBIN 34.4 pg (27.0-31.0); MEAN CORPUSCULAR HGB CONC 34.2 g/dL (33.0-37.0); MEAN PLATELET VOLUME 9.5 fL (7.2-11.7); MONO % 15.3 % (0.0-10.0); RED CELL DISTRIBUTION WIDTH 14.1 % (11.5-14.5); WHITE BLOOD COUNT 6.2 K/uL (4.8-10.8)
--- NOTE | 2017-01-15 07:24 | CP.PCM.PN ---
<SheliaSarah - Last Filed: 01/15/17 08:19> Subjective - Date & Time of Evaluation Date of Evaluation: 01/15/17 Time of Evaluation: 07:21 - Subjective Subjective: Progress note for Dr. Goncalves Patient seen and examined at bedside. No Acute events overnight. Patient tolerating pain well. Patient denies fever, chills, nausea vomiting, constipation. Patient states he's been walking to the bathroom and that he has had bowel movements and denied issues with urination. Patient asked if he felt warm because he appeared to be diaphoretic. Objective - Vital Signs/Intake and Output Vital Signs (last 24 hours): Temp Pulse Resp BP Pulse Ox 99.0 F 89 20 138/87 97 01/14/17 15:19 01/14/17 15:19 01/14/17 15:19 01/14/17 15:19 01/14/17 15:19 Intake and Output: 01/15/17 01/15/17 06:59 18:59 Intake Total 1020 Balance 1020 - Medications Medications: Current Medications Famotidine (Pepcid) 20 mg PO BID [facility] Last Admin: 01/14/17 18:11 Dose: 20 mg Haloperidol (Haldol) 5 mg PO Q6H PRN PRN Reason: Agitation Haloperidol Lactate (Haldol) 5 mg IM Q4H PRN PRN Reason: severe agitation Folic Acid 1 mg/ Thiamine HCl 100 mg/ Multivitamins/Vitamin C 10 ml/ Dextrose 1 ,011.2 mls @ 100 mls/hr IV DAILY@1200 [facility] ALFREDO Last Admin: 01/14/17 12:11 Dose: 100 mls/hr Lorazepam (Ativan) 1 mg IVP Q4H PRN PRN Reason: Agitation Last Admin: 01/15/17 06:11 Dose: 1 mg Lorazepam (Ativan) 2 mg IVP Q4H [facility] PRN Reason: Taper Stop: 01/19/17 10:29 Last Admin: 01/15/17 06:12 Dose: Not Given - Labs Labs: 01/15/17 06:07 01/14/17 11:23 PT 12.1 SECONDS (9.7-12.2) 01/13/17 06:45 INR 1.1 01/13/17 06:45 APTT 26 SECONDS (21-34) 01/13/17 06:45 - Constitutional Appears: Non-toxic - Head Exam Head Exam: NORMAL INSPECTION - Eye Exam Eye Exam: EOMI, Normal appearance - ENT Exam ENT Exam: Mucous Membranes Moist - Neck Exam Neck Exam: Full ROM - Respiratory Exam Respiratory Exam: NORMAL BREATHING PATTERN. absent: Accessory Muscle Use, Respiratory Distress - Cardiovascular Exam Cardiovascular Exam: +S1, +S2 - GI/Abdominal Exam GI & Abdominal Exam: Soft. absent: Tenderness Additional comments: dressing c/d/i - Extremities Exam Extremities Exam: Full ROM - Neurological Exam Neurological Exam: Alert, Awake, Oriented x3 - Psychiatric Exam Psychiatric exam: Normal Affect, Normal Mood - Skin Skin Exam: Dry, Intact, Normal Color Assessment and Plan - Assessment and Plan (Free Text) Assessment: appendicitis s/p Open Appendectomy 01/12/17 POD#[address] Fitzpatrick: no necrosis of the appendix. IV antibiotics were discontinued. Patient is to follow up with Dr. Fitzpatrick upon discharge. Alcohol Withdrawl Please see details in HPI above NPO for now Change IVF to Bannana Bag containing MVI, Folic Acid, and Thiamine @ 100 ml/hr Ativan Taper Once stable then transfer to [address] [place] [address] Dr. Hong help is greatly appreciated Elevated LFTs/T.Bili/Lipase/Amylase, possibly secondary to appendicitis, downtrending Path report: appendicitis 01/12 CT Abdomen/Pelvis: No acute liver/gallbladder/pancreas abnormalities Diet: regular (advanced) Hepatitis B+ patient is to get GI referral via [facility] upon discharge Prophylaxis Pepcid 20 mg PO BID Bilateral SCDs discussed with Yoshi Goncalves D.O. Sarah Bass, DO PGY1 <Yoshi Goncalves - Last Filed: 01/15/17 18:31> Objective - Vital Signs/Intake and Output Vital Signs (last 24 hours): Temp Pulse Resp BP Pulse Ox 98.5 F 83 20 135/82 97 01/15/17 07:40 01/15/17 07:40 01/15/17 07:40 01/15/17 07:40 01/15/17 07:40 Intake and Output: 01/15/17 01/15/17 06:59 18:59 Intake Total 1020 Balance 1020 - Medications Medications: Current Medications Famotidine (Pepcid) 20 mg PO BID [facility] Last Admin: 01/15/17 17:32 Dose: 20 mg Haloperidol (Haldol) 5 mg PO Q6H PRN PRN Reason: Agitation Haloperidol Lactate (Haldol) 5 mg IM Q4H PRN PRN Reason: severe agitation Folic Acid 1 mg/ Thiamine HCl 100 mg/ Multivitamins/Vitamin C 10 ml/ Dextrose 1 ,011.2 mls @ 100 mls/hr IV DAILY@1200 [facility] ALFREDO Last Admin: 01/15/17 12:35 Dose: 100 mls/hr Lorazepam (Ativan) 1 mg IVP Q4H PRN PRN Reason: Agitation Last Admin: 01/15/17 06:11 Dose: 1 mg Lorazepam (Ativan) 2 mg IVP Q6H [facility] AL[facility]ED[facility] PRN Reason: Taper Stop: 01/19/17 10:29 Last Admin: 01/15/17 17:27 Dose: 2 mg - Labs Labs: 01/15/17 06:07 01/15/17 06:07 PT 12.1 SECONDS (9.7-12.2) 01/13/17 06:45 INR 1.1 01/13/17 06:45 APTT 26 SECONDS (21-34) 01/13/17 06:45 Attending/Attestation - Attestation I have personally seen and examined this patient.: Yes I have fully participated in the care of the patient.: Yes I have reviewed all pertinent clinical information, including history, physical exam and plan: Yes Notes (Text): 01/15/17 18:28 Patient was seen and examined at 2:20 PM 01/15/17 662 A Exam, assessment and plan were thoroughly gone over with the resident. Also on ROS: Patient has NO complaints Also on Exam: General: Patient is awake, alert, and oriented to person/place/time and why he is here and remembered that he had an Appendectomy. Still tremulous GI: Right LQ surgical site with intact jonathan and no wound dehiscence If patient continues to be stable, then will switch Ativan IV taper to PO starting at 10:30 AM and transfer to [facility]. Yoshi Goncalves D.O.
[2017-01-15 07:46] LABS: CHLORIDE 101 mmol/L (98-107)
[2017-01-15 07:47] LABS: POTASSIUM 3.5 mmol/L (3.6-5.2); SODIUM 134 mmol/L (132-148)
[2017-01-15 07:49] LABS: AST/SGOT 178 U/L (17-59); BILIRUBIN,TOTAL 1.7 mg/dL (0.2-1.3); CARBON DIOXIDE 23 mmol/L (22-30); GFR AFRICAN-AMERICAN > 60
[2017-01-15 07:50] LABS: ALB/GLOB RATIO 0.9 (1.0-2.1); ALKALINE PHOSPHATASE 66 U/L (38-126); ALT/SGPT 400 U/L (21-72); BLOOD UREA NITROGEN 9 mg/dL (9-20); CALCIUM 8.8 mg/dl (8.6-10.4); GLUCOSE,RANDOM 86 mg/dL (75-110); PHOSPHOROUS 4.6 mg/dL (2.5-4.5)
[2017-01-15] MEDS: Folic Acid 1 MG, Thiamine 100 MG, Multivitamin (MVI) 10 ML in Dextrose 5% In Water 1,00... IV SCH (12:35)
[2017-01-15] MEDS ORDERED: Potassium Chloride 20 mEq ER Tab PO ONE (14:45)
--- NOTE | 2017-01-16 07:35 | CP.PCM.PN ---
<SheliaSarah - Last Filed: 01/16/17 08:01> Subjective - Date & Time of Evaluation Date of Evaluation: 01/16/17 Time of Evaluation: 08:00 - Subjective Subjective: Progress note for Dr. Goncalves Patient seen and examined at bedside. No Acute events overnight per nursing. Patient states he has no problems and no questions. Patient denies fever, chills , nausea vomiting, constipation, dysuria, diarrhea. Objective - Vital Signs/Intake and Output Vital Signs (last 24 hours): Temp Pulse Resp BP Pulse Ox 97.9 F 90 20 125/79 94 L 01/15/17 23:20 01/15/17 23:20 01/15/17 23:20 01/15/17 23:20 01/15/17 23:20 Intake and Output: 01/16/17 01/16/17 06:59 18:59 Intake Total 1270 Balance 1270 - Medications Medications: Current Medications Famotidine (Pepcid) 20 mg PO BID [facility] Last Admin: 01/15/17 17:32 Dose: 20 mg Haloperidol (Haldol) 5 mg PO Q6H PRN PRN Reason: Agitation Haloperidol Lactate (Haldol) 5 mg IM Q4H PRN PRN Reason: severe agitation Folic Acid 1 mg/ Thiamine HCl 100 mg/ Multivitamins/Vitamin C 10 ml/ Dextrose 1 ,011.2 mls @ 100 mls/hr IV DAILY@1200 [facility] Last Admin: 01/15/17 12:35 Dose: 100 mls/hr Lorazepam (Ativan) 1 mg IVP Q4H PRN PRN Reason: Agitation Last Admin: 01/15/17 22:50 Dose: 1 mg Lorazepam (Ativan) 2 mg IVP Q6H [facility] PRN Reason: Taper Stop: 01/19/17 10:29 Last Admin: 01/16/17 04:30 Dose: Not Given - Labs Labs: 01/15/17 06:07 01/15/17 06:07 PT 12.1 SECONDS (9.7-12.2) 01/13/17 06:45 INR 1.1 01/13/17 06:45 APTT 26 SECONDS (21-34) 01/13/17 06:45 - Constitutional Appears: Non-toxic - Head Exam Head Exam: NORMAL INSPECTION - Eye Exam Eye Exam: EOMI, Normal appearance - ENT Exam ENT Exam: Mucous Membranes Moist - Neck Exam Neck Exam: Full ROM - Respiratory Exam Respiratory Exam: NORMAL BREATHING PATTERN. absent: Accessory Muscle Use, Respiratory Distress - Cardiovascular Exam Cardiovascular Exam: REGULAR RHYTHM, +S1, +S2. absent: Bradycardia, Tachycardia - GI/Abdominal Exam GI & Abdominal Exam: Soft Additional comments: incision site no sign of erythema, purulence, induration - Extremities Exam Extremities Exam: Full ROM. absent: Pedal Edema - Neurological Exam Neurological Exam: Awake - Psychiatric Exam Psychiatric exam: Normal Affect, Normal Mood - Skin Skin Exam: Dry, Intact, Normal Color, Warm <Goncalves,Yoshi J - Last Filed: 01/16/17 19:18> Objective - Vital Signs/Intake and Output Vital Signs (last 24 hours): Temp Pulse Resp BP Pulse Ox 98.1 F 85 18 112/68 97 01/16/17 08:51 01/16/17 08:51 01/16/17 08:51 01/16/17 08:51 01/16/17 08:51 - Medications Medications: Current Medications Famotidine (Pepcid) 20 mg PO BID [facility] Last Admin: 01/16/17 18:10 Dose: 20 mg Folic Acid (Folic Acid) 1 mg PO DAILY [facility] Haloperidol (Haldol) 5 mg PO Q6H PRN PRN Reason: Agitation Haloperidol Lactate (Haldol) 5 mg IM Q4H PRN PRN Reason: severe agitation Lorazepam (Ativan) 1 mg IVP Q4H PRN PRN Reason: Agitation Last Admin: 01/15/17 22:50 Dose: 1 mg Lorazepam (Ativan) 1 mg PO BID [facility] Stop: 01/17/17 18:01 Lorazepam (Ativan) 1 mg PO ONCE ONE Stop: 01/18/17 23:51 Lorazepam (Ativan) 1 mg PO Q6 [facility] Stop: 01/17/17 06:01 Last Admin: 01/16/17 18:10 Dose: 1 mg Multivitamins (Hexavitamin) 1 tab PO DAILY [facility] Thiamine HCl (Vitamin B1 Tab) 100 mg PO DAILY [facility] - Labs Labs: 01/16/17 08:45 01/16/17 08:45 PT 12.1 SECONDS (9.7-12.2) 01/13/17 06:45 INR 1.1 01/13/17 06:45 APTT 26 SECONDS (21-34) 01/13/17 06:45 Attending/Attestation - Attestation I have personally seen and examined this patient.: Yes I have fully participated in the care of the patient.: Yes I have reviewed all pertinent clinical information, including history, physical exam and plan: Yes Notes (Text): 01/16/17 19:11 Patient was seen and examined at 12:00 PM 01/16/17 662 A Exam, assessment and plan were thoroughly gone over with the resident. Also on ROS: Patient has NO complaints He is eating without any issues NO abdominal pain NO n/v/d/c Also on Exam: General: Patient is awake, alert, and oriented to person/place/time and why he is here and remembered that he had an Appendectomy. Still tremulous GI: Right LQ surgical site with intact jonathan and no wound dehiscence, NO Epigastric Pain, Soft, ND, NO guarding/rebound tenderness Assessment and Plan: 1). S/P Open Appendectomy 01/12/[address] Fitzpatrick 2). Alcohol Withdrawl He is on Day #3/5 of Ativan Taper and as he is eating and tolerating diet, his Ativan Taper is switched to PO Still slightly tremulous 3). Elevated LFTs/T. Bili/Lipase/Amylase Both Amylase and Lipase have increased significantly. However patient's GI exam is benign and CT Abdomen/Pelvis on presentation did not show any acute pathology Repeat CT Abdomen/Pelvis with contrast has been ordered. 4). Hepatitis B + He will need to follow up with [facility] upon discharge. Yoshi Goncalves D.O.
[2017-01-16 09:02] LABS: HEMATOCRIT 46.3 % (35.0-51.0); LYMPH # 6.3 K/uL (1.0-4.3); LYMPH % 97.2 % (20.0-40.0); MEAN CELL VOLUME 100.8 fL (80.0-94.0); MEAN CORPUSCULAR HEMOGLOBIN 34.4 pg (27.0-31.0); MEAN CORPUSCULAR HGB CONC 34.1 g/dL (33.0-37.0); MEAN PLATELET VOLUME 9.7 fL (7.2-11.7); MONO % 0.1 % (0.0-10.0); NRBC % 0.2 % (0.0-2.0); PLATELET COUNT 201 K/uL (130-400); RED CELL DISTRIBUTION WIDTH 13.9 % (11.5-14.5); WHITE BLOOD COUNT 6.5 K/uL (4.8-10.8)
[2017-01-16 09:12] LABS: CHLORIDE 98 mmol/L (98-107); POTASSIUM 3.9 mmol/L (3.6-5.2); SODIUM 133 mmol/L (132-148)
[2017-01-16 09:14] LABS: ALB/GLOB RATIO 1.2 (1.0-2.1); AMYLASE 186 U/L (30-110); AST/SGOT 139 U/L (17-59); BILIRUBIN,TOTAL 1.6 mg/dL (0.2-1.3); BLOOD UREA NITROGEN 12 mg/dL (9-20); CARBON DIOXIDE 26 mmol/L (22-30); GFR AFRICAN-AMERICAN > 60; TOTAL PROTEIN 7.8 g/dL (6.3-8.3)
[2017-01-16 09:15] LABS: ALKALINE PHOSPHATASE 71 U/L (38-126); ALT/SGPT 341 U/L (21-72); GLUCOSE,RANDOM 96 mg/dL (75-110); PHOSPHOROUS 4.3 mg/dL (2.5-4.5)
[2017-01-16 10:59] LABS: BASOPHIL 1 % (0-2); EOSINOPHIL 2 % (0-4); MYELOCYTE 1 % (0-0); NEUTROPHIL 61 % (50-75); TOTAL CELLS COUNTED 100
[2017-01-16 11:00] LABS: LARGE PLATELETS PRESENT
[2017-01-16] MEDS: Folic Acid 1 MG, Thiamine 100 MG, Multivitamin (MVI) 10 ML in Dextrose 5% In Water 1,00... IV SCH (11:56)
[2017-01-17 07:18] LABS: BASO # 0.1 K/uL (0.0-0.2); BASO % 1.2 % (0.0-2.0); EOS # 0.1 K/uL (0.0-0.7); HEMATOCRIT 42.3 % (35.0-51.0); LYMPH # 1.2 K/uL (1.0-4.3); LYMPH % 20.9 % (20.0-40.0); MEAN CELL VOLUME 99.6 fL (80.0-94.0); MEAN CORPUSCULAR HEMOGLOBIN 33.8 pg (27.0-31.0); MEAN CORPUSCULAR HGB CONC 33.9 g/dL (33.0-37.0); MEAN PLATELET VOLUME 9.6 fL (7.2-11.7); MONO # 1.1 K/uL (0.0-0.8); MONO % 19.5 % (0.0-10.0); RED CELL DISTRIBUTION WIDTH 13.9 % (11.5-14.5); WHITE BLOOD COUNT 5.7 K/uL (4.8-10.8)
[2017-01-17 07:31] LABS: CHLORIDE 99 mmol/L (98-107)
[2017-01-17 07:32] LABS: POTASSIUM 3.8 mmol/L (3.6-5.2); SODIUM 133 mmol/L (132-148)
[2017-01-17 07:34] LABS: ALB/GLOB RATIO 1.3 (1.0-2.1); ALKALINE PHOSPHATASE 60 U/L (38-126); ALT/SGPT 280 U/L (21-72); AMYLASE 188 U/L (30-110); AST/SGOT 105 U/L (17-59); BILIRUBIN,TOTAL 1.4 mg/dL (0.2-1.3); BLOOD UREA NITROGEN 11 mg/dL (9-20); CALCIUM 8.7 mg/dl (8.6-10.4); CARBON DIOXIDE 26 mmol/L (22-30); GFR AFRICAN-AMERICAN > 60; GLUCOSE,RANDOM 96 mg/dL (75-110); TOTAL PROTEIN 6.9 g/dL (6.3-8.3)
[2017-01-17] MEDS: Multiple Vitamins Tab PO SCH (09:17)
--- NOTE | 2017-01-17 10:20 | CP.PCM.PN ---
<Jazmyne Araujo - Last Filed: 01/17/17 17:58> Subjective - Date & Time of Evaluation Date of Evaluation: 01/17/17 Time of Evaluation: : - Subjective Subjective: Patient has been seen and examined. No overnight events reported. Patient denies any fever, chills, SOB, abdominal pain, N/V/D, tremor, or urinary symptoms. He is tolerating his diet. Objective - Vital Signs/Intake and Output Vital Signs (last 24 hours): Temp Pulse Resp BP Pulse Ox 98.2 F 84 18 129/72 97 01/17/17 07:00 01/17/17 07:00 01/17/17 07:00 01/17/17 07:00 01/17/17 07:00 Intake and Output: 01/17/17 01/17/17 06:59 18:59 Intake Total 1520 Balance 1520 - Medications Medications: Current Medications Famotidine (Pepcid) 20 mg PO BID [facility] Last Admin: 01/17/17 09:17 Dose: 20 mg Folic Acid (Folic Acid) 1 mg PO DAILY [facility] Last Admin: 01/17/17 09:17 Dose: 1 mg Haloperidol (Haldol) 5 mg PO Q6H PRN PRN Reason: Agitation Haloperidol Lactate (Haldol) 5 mg IM Q4H PRN PRN Reason: severe agitation Lorazepam (Ativan) 1 mg IVP Q4H PRN PRN Reason: Agitation Last Admin: 01/15/17 22:50 Dose: 1 mg Lorazepam (Ativan) 1 mg PO BID [facility] Stop: 01/17/17 18:01 Last Admin: 01/17/17 09:17 Dose: 1 mg Lorazepam (Ativan) 1 mg PO ONCE ONE Stop: 01/18/17 23:51 Multivitamins (Hexavitamin) 1 tab PO DAILY [facility] Last Admin: 01/17/17 09:17 Dose: 1 tab Thiamine HCl (Vitamin B1 Tab) 100 mg PO DAILY [facility] Last Admin: 01/17/17 09:17 Dose: 100 mg - Labs Labs: 01/17/17 07:04 01/17/17 07:04 PT 12.1 SECONDS (9.7-12.2) 01/13/17 06:45 INR 1.1 01/13/17 06:45 APTT 26 SECONDS (21-34) 01/13/17 06:45 - Constitutional Appears: Well, Non-toxic, No Acute Distress - Head Exam Head Exam: ATRAUMATIC, NORMAL INSPECTION, NORMOCEPHALIC - Eye Exam Eye Exam: EOMI, Normal appearance - ENT Exam ENT Exam: Mucous Membranes Moist - Respiratory Exam Respiratory Exam: Clear to Ausculation Bilateral, NORMAL BREATHING PATTERN. absent: Rales, Rhonchi, Wheezes - Cardiovascular Exam Cardiovascular Exam: RRR, +S1, +S2. absent: Tachycardia - GI/Abdominal Exam GI & Abdominal Exam: Soft, Normal Bowel Sounds. absent: Tenderness Additional comments: Dressing at RLQ. Wound is clean and dry. Tenderness at surgical site. - Extremities Exam Extremities Exam: absent: Pedal Edema - Neurological Exam Neurological Exam: Alert, Awake, Oriented x3 - Psychiatric Exam Psychiatric exam: Normal Affect, Normal Mood - Skin Skin Exam: Dry, Intact, Normal Color, Warm Assessment and Plan - Assessment and Plan (Free Text) Assessment: 36 year old male s/p appendectomy on 01/12/17. Admitted for evaluation and treatment of acute appendicitis, pancreatitis, and EtOH withdrawal. Plan: 1). S/P Open Appendectomy 01/12/17 Surgeon - Dr. Fitzpatrick Encourage Ambulation Regular Diet Follow up with Dr. Saldaña about outpatient follow up tomorrow 2). Alcohol Withdrawl He is on Day #4/5 of Ativan Taper and as he is eating and tolerating diet. Ativan Taper is switched to PO yesterday. Continue Multivitamins, thiamine, Folic Acid No tremors 3). Elevated LFTs/T. Bili/Lipase/Amylase CT Abd/Pelvis on 01/17/17 read: Heptomegaly. Hypoattenuation of the liver compatible with hepatic steatosis. Right abdominal skin jonathan. Mild inflammatory stranding. Subcutaneous emphysema along the right lateral pelvic wall; correlate clinically for recent intervention. Pancreas unremarkable. LFTs trending down, T.Bili trending down. Inc in Amylase and Lipase. 4). Hepatitis B + He will need to follow up with [facility] upon discharge. GI Proph - Famotidine Dispo: CT showed unremarkable pancreas. If amylase and lipase are trending down we can DC. We give a list of A.A meetings upon discharge. Patient seen, examined, and discussed with Attending Jazmyne Araujo PGY-1 <Yoshi Goncalves - Last Filed: 01/17/17 22:41> Objective - Vital Signs/Intake and Output Vital Signs (last 24 hours): Temp Pulse Resp BP Pulse Ox 98.3 F 66 20 123/84 98 01/17/17 15:00 01/17/17 15:00 01/17/17 15:00 01/17/17 15:00 01/17/17 15:00 Intake and Output: 01/17/17 01/18/17 18:59 06:59 Intake Total 600 Balance 600 - Medications Medications: Current Medications Famotidine (Pepcid) 20 mg PO BID [facility] Last Admin: 01/17/17 17:45 Dose: 20 mg Folic Acid (Folic Acid) 1 mg PO DAILY [facility] Last Admin: 01/17/17 09:17 Dose: 1 mg Haloperidol (Haldol) 5 mg PO Q6H PRN PRN Reason: Agitation Haloperidol Lactate (Haldol) 5 mg IM Q4H PRN PRN Reason: severe agitation Lorazepam (Ativan) 1 mg IVP Q4H PRN PRN Reason: Agitation Last Admin: 01/15/17 22:50 Dose: 1 mg Lorazepam (Ativan) 1 mg PO ONCE ONE Stop: 01/18/17 23:51 Multivitamins (Hexavitamin) 1 tab PO DAILY [facility] Last Admin: 01/17/17 09:17 Dose: 1 tab Thiamine HCl (Vitamin B1 Tab) 100 mg PO DAILY [facility] Last Admin: 01/17/17 09:17 Dose: 100 mg - Labs Labs: 01/17/17 07:04 01/17/17 07:04 PT 12.1 SECONDS (9.7-12.2) 01/13/17 06:45 INR 1.1 01/13/17 06:45 APTT 26 SECONDS (21-34) 01/13/17 06:45 Attending/Attestation - Attestation I have personally seen and examined this patient.: Yes I have fully participated in the care of the patient.: Yes I have reviewed all pertinent clinical information, including history, physical exam and plan: Yes Notes (Text): 01/17/17 22:34 Patient was seen and examined at 6:15 PM 01/17/17 662 A Exam, assessment and plan were thoroughly gone over with the resident. Also on ROS: Patient has NO complaints He is eating without any issues NO abdominal pain NO n/v/d/c Also on Exam: General: Patient is awake, alert, and oriented to person/place/time and why he is here and remembered that he had an Appendectomy. He is NO longer tremulous GI: Right LQ surgical site with intact jonathan and no wound dehiscence, NO Epigastric Pain, Soft, ND, NO guarding/rebound tenderness Assessment and Plan: 1). S/P Open Appendectomy 01/12/[address] Fitzpatrick 2). Alcohol Withdrawl He is on Day #4/5 of Ativan Taper and as he is eating and tolerating diet, his Ativan Taper is switched to PO 01/16/17 NO longer tremulous 3). Elevated LFTs/T. Bili/Lipase/Amylase Both Amylase and Lipase have increased significantly. However patient's GI exam is benign and CT Abdomen/Pelvis on presentation did not show any acute pathology Repeat CT Abdomen/Pelvis 01/17/17 did NOT show any acute pathology (NO pancreatitis) and did show Hepatomegly/Steatosis 4). Hepatitis B + He will need to follow up with [facility] upon discharge. I spoke with Surgeon Dr. Fitzpatrick about my concerns about the elevated Lipase and that was why repeat CT Abdomen/Pelvis was done and that it did not show Pancreatitis. Medicine Team: If there are no issues with patient on morning of 01/18/17 and as long as the Lipase has decreased from 01/17/17, then patient should be discharged. Patient will need to follow up with Dr. Fitzpatrick at his office on Tuesday and the patient will need to be provided with Dr. Fitzpatrick contact information so that he can make the appointment. Patient will also need to follow with the [facility] for trending of the LFTs/Amylase/Lipase. Patient should be provided with printout of AA meetings in the [place] area. Yoshi Goncalves D.O.
--- NOTE | 2017-01-17 13:23 | CARD ---
APPROVED REPORT EKG Measurement Heart [id number] <Conclusion> Normal sinus rhythm Normal ECG
[2017-01-17] MEDS ORDERED: Iodixanol 320 mg/ml 150 ml Bottle IV ONE (13:33)
--- NOTE | 2017-01-17 14:27 | CT ---
PROCEDURE: CT Abdomen and Pelvis with contrast HISTORY: Elevated Lipase (worsening), R/O Pancreatitis COMPARISON: CT abdomen and pelvis with IV contrast performed 01/12/17 TECHNIQUE: Contrast dose: 100 cc visi opaque 320 Radiation dose: Total exam DLP = 537.23 mGy-cm. This CT exam was performed using one or more of the following dose reduction techniques: Automated exposure control, adjustment of the mA and/or kV according to patient size, and/or use of iterative reconstruction technique. FINDINGS: LOWER THORAX: No visible consolidation, pleural effusion, or pneumothorax. LIVER: Hypoattenuation of the liver compatible with hepatic steatosis. Hepatomegaly. GALLBLADDER AND BILE DUCTS: Contracted gallbladder appears otherwise grossly unremarkable. PANCREAS: Unremarkable. SPLEEN: Splenomegaly. ADRENALS: Unremarkable. KIDNEYS AND URETERS: The kidneys enhance symmetrically. No hydronephrosis or obstructing calculus identified. VASCULATURE: No aortic aneurysm. BOWEL: Stomach is nondistended. Lack of oral contrast limits evaluation for bowel pathology. Bowel loops appear within normal limits of caliber without evidence of obstruction. APPENDIX: The appendix is not identified; postsurgical changes evident. PERITONEUM: No significant free fluid. No definite free air. LYMPH NODES: No bulky adenopathy. BLADDER: Unremarkable. REPRODUCTIVE: The prostate gland measures approximately 2.9 x 3.6 cm. BONES: Degenerative changes of the spine. OTHER FINDINGS: Right abdominal skin jonathan. Mild inflammatory stranding. Subcutaneous emphysema along the right lateral anterior abdominal/ pelvic wall; correlate clinically for recent intervention. IMPRESSION: Hepatomegaly. Hypoattenuation of the liver compatible with hepatic steatosis. Right abdominal skin jonathan. Mild inflammatory stranding. Subcutaneous emphysema along the right lateral pelvic wall; correlate clinically for recent intervention. Evidence of recent appendectomy.
[2017-01-17 16:30] VITALS: RESP 20
--- NOTE | 2017-01-17 17:46 | PCM.PYCHPN ---
Psychiatric Progress Note - Psychiatric Progress Note Patient seen today, length of contact: 15 min Patient Chief Complaint: "I'm OK" Problems Identified/Issues Discussed: Patient is seen, chart reviewed and case discussed No longer in delirium and is not in acute wdw Detox is ending Not interested in rehab (has to work) Psych will sign off, cleared for d/c Medication Change: Yes (detox is ending) Medical Record Reviewed: Yes Mental Status Examination - Cognitive Function Orientation: Person, Place, Situation, Time Memory: Intact Attention: WNL Concentration: Poor Association: WNL Fund of Knowledge: Poor - Mood Mood: Neutral - Affect Affect: Constricted - Speech Speech: Appropriate - Formal Thought Process Formal Thought Process: No Impairment - Suicidal Ideation Suicidal Ideation: No - Homicidal Ideation Homicidal Ideation: No Goal/Treatment Plan - Goal/Treatment Plan Need for Continued Stay: Other (medical) Progress Toward Problem(s) and Goals/Treatment Plan: Detox ending Motivate for rehab ([facility] or [facility]) Support and psychoed Psych will sign off
[2017-01-18 07:26] LABS: BASO # 0.1 K/uL (0.0-0.2); EOS # 0.2 K/uL (0.0-0.7); EOS % 2.3 % (0.0-4.0); HEMATOCRIT 44.9 % (35.0-51.0); LYMPH # 1.4 K/uL (1.0-4.3); LYMPH % 21.4 % (20.0-40.0); MEAN CORPUSCULAR HEMOGLOBIN 34.6 pg (27.0-31.0); MEAN CORPUSCULAR HGB CONC 34.2 g/dL (33.0-37.0); MEAN PLATELET VOLUME 9.6 fL (7.2-11.7); MONO # 1.2 K/uL (0.0-0.8); MONO % 17.4 % (0.0-10.0); RED CELL DISTRIBUTION WIDTH 13.7 % (11.5-14.5); WHITE BLOOD COUNT 6.7 K/uL (4.8-10.8)
[2017-01-18 08:10] LABS: AMYLASE 188 U/L (30-110); CHLORIDE 99 mmol/L (98-107); SODIUM 136 mmol/L (132-148)
[2017-01-18 08:11] LABS: POTASSIUM 3.7 mmol/L (3.6-5.2)
[2017-01-18 08:12] LABS: GFR AFRICAN-AMERICAN > 60
[2017-01-18 08:13] LABS: ALKALINE PHOSPHATASE 63 U/L (38-126); ALT/SGPT 279 U/L (21-72); AST/SGOT 101 U/L (17-59); BILIRUBIN,TOTAL 1.2 mg/dL (0.2-1.3); BLOOD UREA NITROGEN 13 mg/dL (9-20); CARBON DIOXIDE 25 mmol/L (22-30); GLUCOSE,RANDOM 87 mg/dL (75-110); TOTAL PROTEIN 8.3 g/dL (6.3-8.3)
[2017-01-18] MEDS: Multiple Vitamins Tab PO SCH (10:00)
--- NOTE | 2017-01-18 17:20 | US ---
HISTORY: Elevated LFT's,Lipase,Amylase COMPARISON: CT abdomen and pelvis with contrast performed 01/17/17 TECHNIQUE: Sonographic evaluation of the right upper quadrant of the abdomen. FINDINGS: LIVER: Measures 18.8 cm in length. Echogenic liver may be seen in setting of hepatic parenchymal disease or fatty infiltration. No focal hepatic mass identified. The main portal vein appears patent with normal directional flow. No intrahepatic bile duct dilatation. GALLBLADDER: Partially contracted gallbladder state limits evaluation. No gallstones. No gallbladder wall thickening or pericholecystic edema. Negative sonographic Bryant's sign as assessed by the adhesion tester. COMMON BILE DUCT: Measures 3 mm. PANCREAS: Not well-visualized. RIGHT KIDNEY: Measures 11.5 x 5.6 x 5.2 cm. No obstructing calculus or hydronephrosis identified. AORTA: Limited visualization appears grossly unremarkable. IVC: Limited visualization appears grossly unremarkable. OTHER FINDINGS: None . IMPRESSION: Echogenic liver may be seen in setting of hepatic parenchymal disease or fatty infiltration.
--- NOTE | 2017-01-18 17:55 | CP.PCM.PN ---
<VernonbennettTorinfam - Last Filed: 01/18/17 18:04> Subjective - Date & Time of Evaluation Date of Evaluation: 01/18/17 Time of Evaluation: 10:45 - Subjective Subjective: Patient has been seen and examined. No overnight events reported. Patient denies any fever, chills, SOB, abdominal pain, N/V/D, tremor, or urinary symptoms. He is tolerating his diet. Objective - Vital Signs/Intake and Output Vital Signs (last 24 hours): Temp Pulse Resp BP Pulse Ox 97.8 F 70 20 128/78 98 01/18/17 17:40 01/18/17 17:40 01/18/17 17:40 01/18/17 17:40 01/18/17 17:40 Intake and Output: 01/18/17 01/18/17 06:59 18:59 Intake Total 600 Balance 600 - Medications Medications: Current Medications Famotidine (Pepcid) 20 mg PO BID [facility] Last Admin: 01/18/17 10:00 Dose: Not Given Folic Acid (Folic Acid) 1 mg PO DAILY [facility] Last Admin: 01/18/17 10:00 Dose: Not Given Haloperidol (Haldol) 5 mg PO Q6H PRN PRN Reason: Agitation Haloperidol Lactate (Haldol) 5 mg IM Q4H PRN PRN Reason: severe agitation Lorazepam (Ativan) 1 mg IVP Q4H PRN PRN Reason: Agitation Last Admin: 01/15/17 22:50 Dose: 1 mg Lorazepam (Ativan) 1 mg PO ONCE ONE Stop: 01/18/17 23:51 Multivitamins (Hexavitamin) 1 tab PO DAILY [facility] Last Admin: 01/18/17 10:00 Dose: Not Given Thiamine HCl (Vitamin B1 Tab) 100 mg PO DAILY [facility] Last Admin: 01/18/17 10:35 Dose: Not Given - Labs Labs: 01/18/17 07:05 01/18/17 07:05 PT 12.1 SECONDS (9.7-12.2) 01/13/17 06:45 INR 1.1 01/13/17 06:45 APTT 26 SECONDS (21-34) 01/13/17 06:45 - Additional Findings Additional findings: - Constitutional Appears: Well, Non-toxic, No Acute Distress - Head Exam Head Exam: ATRAUMATIC, NORMAL INSPECTION, NORMOCEPHALIC - Eye Exam Eye Exam: EOMI, Normal appearance - ENT Exam ENT Exam: Mucous Membranes Moist - Respiratory Exam Respiratory Exam: Clear to Ausculation Bilateral, NORMAL BREATHING PATTERN. absent: Rales, Rhonchi, Wheezes - Cardiovascular Exam Cardiovascular Exam: RRR, +S1, +S2. absent: Tachycardia - GI/Abdominal Exam GI & Abdominal Exam: Soft, Normal Bowel Sounds. absent: Tenderness Additional comments: Dressing at RLQ. Wound is clean and dry. Tenderness at surgical site. - Extremities Exam Extremities Exam: absent: Pedal Edema - Neurological Exam Neurological Exam: Alert, Awake, Oriented x3 - Psychiatric Exam Psychiatric exam: Normal Affect, Normal Mood - Skin Skin Exam: Dry, Intact, Normal Color, Warm Assessment and Plan - Assessment and Plan (Free Text) Assessment: 36 year old male s/p appendectomy on 01/12/17. Admitted for evaluation and treatment of acute appendicitis, pancreatitis, and EtOH withdrawal. Plan: 1). S/P Open Appendectomy 01/12/17 Surgeon - Dr. Fitzpatrick Encourage Ambulation Regular Diet Follow up with Dr. Saldaña about outpatient follow up tomorrow 2). Alcohol Withdrawal He is on Day #5/5 of Ativan Taper and as he is eating and tolerating diet. Ativan Taper is switched to PO yesterday. Continue Multivitamins, thiamine, Folic Acid No tremors 3). Elevated LFTs/T. Bili/Lipase/Amylase CT Abd/Pelvis on 01/17/17 read: Heptomegaly. Hypoattenuation of the liver compatible with hepatic steatosis. Right abdominal skin jonathan. Mild inflammatory stranding. Subcutaneous emphysema along the right lateral pelvic wall; correlate clinically for recent intervention. Pancreas unremarkable. LFTs trending down, T.Bili trending down. No major change in Amylase in Lipase RUQ US read Echogenic liver may be seen in setting of hepatic parenchymal disease or fatty infiltration Diet changed to low fat Fasting lipid panel in the morning. 4). Hepatitis B + He will need to follow up with [facility] upon discharge. GI Proph - Famotidine Dispo: CT showed unremarkable pancreas. If amylase and lipase are trending down we can DC. We give a list of A.A meetings upon discharge. Likely to be discharged tomorrow. Patient seen, examined, and discussed with Attending Jazmyne Araujo PGY-1 <Roula Silva V - Last Filed: 01/18/17 18:50> Objective - Vital Signs/Intake and Output Vital Signs (last 24 hours): Temp Pulse Resp BP Pulse Ox 97.8 F 70 20 128/78 98 01/18/17 17:40 01/18/17 17:40 01/18/17 17:40 01/18/17 17:40 01/18/17 17:40 Intake and Output: 01/18/17 01/18/17 06:59 18:59 Intake Total 600 Balance 600 - Medications Medications: Current Medications Famotidine (Pepcid) 20 mg PO BID [facility] Last Admin: 01/18/17 18:14 Dose: 20 mg Folic Acid (Folic Acid) 1 mg PO DAILY [facility] Last Admin: 01/18/17 10:00 Dose: Not Given Haloperidol (Haldol) 5 mg PO Q6H PRN PRN Reason: Agitation Haloperidol Lactate (Haldol) 5 mg IM Q4H PRN PRN Reason: severe agitation Lorazepam (Ativan) 1 mg IVP Q4H PRN PRN Reason: Agitation Last Admin: 01/15/17 22:50 Dose: 1 mg Lorazepam (Ativan) 1 mg PO ONCE ONE Stop: 01/18/17 23:51 Multivitamins (Hexavitamin) 1 tab PO DAILY [facility] Last Admin: 01/18/17 10:00 Dose: Not Given Thiamine HCl (Vitamin B1 Tab) 100 mg PO DAILY [facility] Last Admin: 01/18/17 10:35 Dose: Not Given - Labs Labs: 01/18/17 07:05 01/18/17 07:05 PT 12.1 SECONDS (9.7-12.2) 01/13/17 06:45 INR 1.1 01/13/17 06:45 APTT 26 SECONDS (21-34) 01/13/17 06:45 Attending/Attestation - Attestation I have personally seen and examined this patient.: Yes I have fully participated in the care of the patient.: Yes I have reviewed all pertinent clinical information, including history, physical exam and plan: Yes Notes (Text): Patient seen, examined and case discussed with day-time resident. This is my first time with the patient. Patient seen at bedside this morning. patient is on day 5 of ativan taper. Patient denies his alcohol use to me, denies any use with me while I question him at bedside. Patient is POD 6 from open appendectomy 01/12/17. Patient to follow-up with Dr. Saldaña on Tuesday. Patient does not clinically appear in acute distress. Abdomen exam is benign. Negative Bryant's sign. Abdominal US ordered to r/o gallstones. liver function tests are down trending. Lipase continues to uptrend ? Per review of record, there was consideration for pancreatitis aligned with his acute appendicitis. Patient has had CT Abdomen which shows no acute pancreatitis and was repeated during the admission. Lipid panel ordered for the morning. Will consult GI to r/o other etiology for lipase if attributed to recent surgery. Assessment/Plan 1). S/P Open Appendectomy 01/12/17 * Surgeon Dr. Fitzpatrick on case * Patient to follow-up with surgery upon discharge this upcoming Tuesday 2). Alcohol Withdrawal * He is on Day #5/5 of Ativan Taper and as he is eating and tolerating diet, his Ativan Taper is switched to PO 01/16/17 * Patient is out of range for acute DTs since its about 6 days since surgery; suspected last drink NO longer tremulous * per psych, patient is not interested in rehab; signed off on 01/17 3). Elevated LFTs * patient is positive for Hepatitis B-->will need follow-up with GI as outpatient * Though, patient denies alcoholism; is a contributing factor * Liver function tests are downtrending * However patient's GI exam is benign and CT Abdomen/Pelvis on presentation did not show any acute pathology * Repeat CT Abdomen/Pelvis 01/17/17 did NOT show any acute pathology (NO pancreatitis) and did show Hepatomegly/Steatosis * Abdominal US ordered r/o gallstones 4). Hepatitis B + * He will need to follow up with [facility] upon discharge. 5) Elevated Lipase * Per review of EMR, consideration for appendicitis and pancreatitis on admission * Patient is tolerating diet and abdominal exam appears benign * Repeat CT Abdomen/Pelvis 01/17/17 did NOT show any acute pathology (NO pancreatitis) and did show Hepatomegly/Steatosis * Per discussion with my colleague and surgery, did not appear necrotic during surgery * Will consult GI to exclude pathology that could cause elevated lipase 6) Prophylactic care * Ambulatory * Tolerating diet Disposition: Ordered for abdominal US r/o gallstones; Fasting lipid panel in AM , GI consult r/o etiologies of lipase; if related to recent surgery; patient to be discharge tomorrow likely
[2017-01-19 07:37] LABS: BASO # 0.1 K/uL (0.0-0.2); BASO % 1.5 % (0.0-2.0); EOS # 0.2 K/uL (0.0-0.7); EOS % 2.5 % (0.0-4.0); HEMATOCRIT 46.4 % (35.0-51.0); LYMPH # 1.4 K/uL (1.0-4.3); LYMPH % 21.8 % (20.0-40.0); MEAN CELL VOLUME 100.3 fL (80.0-94.0); MEAN CORPUSCULAR HEMOGLOBIN 34.6 pg (27.0-31.0); MEAN CORPUSCULAR HGB CONC 34.5 g/dL (33.0-37.0); MEAN PLATELET VOLUME 9.4 fL (7.2-11.7); MONO # 1.1 K/uL (0.0-0.8); NRBC % 0.1 % (0.0-2.0); RED CELL DISTRIBUTION WIDTH 13.6 % (11.5-14.5); WHITE BLOOD COUNT 6.5 K/uL (4.8-10.8)
[2017-01-19 08:14] VITALS: O2SAT 99
[2017-01-19 08:21] LABS: CHLORIDE 99 mmol/L (98-107); POTASSIUM 4.2 mmol/L (3.6-5.2); SODIUM 137 mmol/L (132-148)
[2017-01-19 08:23] LABS: CARBON DIOXIDE 26 mmol/L (22-30); CHOLESTEROL 194 mg/dL (0-199); GFR AFRICAN-AMERICAN > 60
[2017-01-19 08:24] LABS: ALB/GLOB RATIO 0.9 (1.0-2.1); ALKALINE PHOSPHATASE 70 U/L (38-126); ALT/SGPT 282 U/L (21-72); AST/SGOT 103 U/L (17-59); BILIRUBIN,TOTAL 1.1 mg/dL (0.2-1.3); BLOOD UREA NITROGEN 15 mg/dL (9-20); CALCIUM 9.5 mg/dl (8.6-10.4); GLUCOSE,RANDOM 94 mg/dL (75-110); TOTAL PROTEIN 8.9 g/dL (6.3-8.3)
--- NOTE | 2017-01-19 09:44 | CP.PCM.CON ---
<HAJA MIRANDA - Last Filed: 01/19/17 13:00> History of Present Illness - History of Present Illness History of Present Illness: Haja Miranda DO PGY1 - GI Consult Note for Dr. Waddell Consultation for uptrending lipase HPI: 36 yo M with PMH significant for alcohol abuse, recent Hep B diagnosis, and recent appendicitis s/p appendectomy on 01/12/2017, initially presented to the hospital complaining of abdominal pain, found to have distended, fluid filled appendix with periappendiceal inflammation and free fluid in right paracolic gutter. Was also noted to have elevated lipase and transaminitis. Patient admits to binge drinking approximately every 3 months for the past twenty years, including 1 liter rum daily for the past two weeks. Consult was called because patient has had persistently uptrending lipase for the past three days (now POD 7) after initially trending down. Patient has no particular complaints, and denies nausea, vomiting, diarrhea, constipation, abdominal pain , back pain, hemoptysis/hematemesis, hematochezia, melena. Patient reports a good appetite, and was seen sitting up and eating his breakfast. 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 Allergies: NKDA Home meds: none Past Patient History - Past Medical History & Family History Past Medical History?: No - Past Social History Smoking Status: Never Smoked - CARDIAC Hx Cardiac Disorders: No - PULMONARY Hx Respiratory Disorders: No - NEUROLOGICAL Hx Neurological Disorder: No - HEENT Hx HEENT Problems: Yes Hx Cataracts: Yes (L Eye) - RENAL Hx Chronic Kidney Disease: No - ENDOCRINE/METABOLIC Hx Endocrine Disorders: No - HEMATOLOGICAL/ONCOLOGICAL Hx Blood Disorders: No - INTEGUMENTARY Hx Dermatological Problems: No - MUSCULOSKELETAL/RHEUMATOLOGICAL Hx Musculoskeletal Disorders: No Hx Falls: No - GASTROINTESTINAL Hx Gastrointestinal Disorders: No - GENITOURINARY/GYNECOLOGICAL Hx Genitourinary Disorders: No - PSYCHIATRIC Hx Psychophysiologic Disorder: No Hx Substance Use: No - SURGICAL HISTORY Hx Surgeries: No - ANESTHESIA Hx Anesthesia: No Hx Anesthesia Reactions: No Hx Malignant Hyperthermia: No Has any member of the family had a problem w/ anesthesia?: No Meds Allergies/Adverse Reactions: Allergies Allergy/AdvReac Type Severity Reaction Status Date / Time No Known Allergies Allergy Unverified 01/11/17 23:59 - Medications Medications: Current Medications Famotidine (Pepcid) 20 mg PO BID [facility] Last Admin: 01/18/17 18:14 Dose: 20 mg Folic Acid (Folic Acid) 1 mg PO DAILY [facility] Last Admin: 01/18/17 10:00 Dose: Not Given Haloperidol (Haldol) 5 mg PO Q6H PRN PRN Reason: Agitation Haloperidol Lactate (Haldol) 5 mg IM Q4H PRN PRN Reason: severe agitation Lorazepam (Ativan) 1 mg IVP Q4H PRN PRN Reason: Agitation Last Admin: 01/15/17 22:50 Dose: 1 mg Multivitamins (Hexavitamin) 1 tab PO DAILY [facility] Last Admin: 01/18/17 10:00 Dose: Not Given Thiamine HCl (Vitamin B1 Tab) 100 mg PO DAILY [facility] Last Admin: 01/18/17 10:35 Dose: Not Given Physical Exam - Constitutional Appears: Non-toxic, No Acute Distress - Head Exam Head Exam: ATRAUMATIC, NORMOCEPHALIC - Eye Exam Eye Exam: EOMI, Normal appearance - ENT Exam ENT Exam: Mucous Membranes Moist - Neck Exam Neck exam: Positive for: Full Rom, Normal Inspection - Respiratory Exam Respiratory Exam: Clear to Auscultation Bilateral, NORMAL BREATHING PATTERN. absent: Rales, Rhonchi, Wheezes - Cardiovascular Exam Cardiovascular Exam: RRR, +S1, +S2 - GI/Abdominal Exam GI & Abdominal Exam: Normal Bowel Sounds, Soft. absent: Distended, Firm, Guarding, Mass, Organomegaly, Rebound, Rigid, Tenderness - Extremities Exam Extremities exam: Negative for: calf tenderness, pedal edema - Neurological Exam Neurological exam: Alert, Oriented x3 - Psychiatric Exam Psychiatric exam: Normal Affect, Normal Mood - Skin Skin Exam: Dry, Intact Results - Vital Signs Recent Vital Signs: Last Vital Signs Temp 98.5 F 01/19/17 07:15 Pulse 79 01/19/17 07:15 Resp 20 01/19/17 07:15 BP 120/81 01/19/17 07:15 Pulse Ox 99 01/19/17 07:15 - Labs Result Diagrams: 01/19/17 07:06 01/19/17 07:06 Labs: Laboratory Results - last 24 hr 01/19/17 01/19/17 07:06 07:06 WBC 6.5 RBC 4.63 Hgb 16.0 Hct 46.4 MCV 100.3 H MCH 34.6 H MCHC 34.5 RDW 13.6 Plt Count 270 MPV 9.4 Neut % (Auto) 57.2 Lymph % (Auto) 21.8 [place] % (Auto) 17.0 H Eos % (Auto) 2.5 Baso % (Auto) 1.5 Neut # 3.7 Lymph # 1.4 [place] # 1.1 H Eos # 0.2 Baso # 0.1 Sodium 137 Potassium 4.2 Chloride 99 Carbon Dioxide 26 Anion Gap 16 BUN 15 Creatinine 0.8 Est GFR ( Amer) > 60 Est GFR (Non-Af Amer) > 60 Random Glucose 94 Calcium 9.5 Total Bilirubin 1.1 AST 103 H ALT 282 H Alkaline Phosphatase 70 Total Protein 8.9 H Albumin 4.3 Globulin 4.6 H Albumin/Globulin Ratio 0.9 L Triglycerides 112 Cholesterol 194 LDL Cholesterol Direct 128 HDL Cholesterol 52 Assessment & Plan - Assessment and Plan (Free Text) Assessment: 36 yo M with PMH of alcohol abuse who initially presented for abdominal pain, now s/p appendectomy POD 7, with new diagnosis of Hepatitis B, and uptrending lipase x3 days Plan 1. Elevated Lipase - Patient currently comfortable, with normal appetite, and no abdominal pain, N/ V/D - Patient reports binge drinking alcohol x20 years, with last drink on day of admission - Patient is s/p appendectomy POD 7 - Lipid panel WNL, no significant hypertriglyceridemia - CT A/P shows normal appearing pancreas; no signs of acute or chronic pancreatitis; GB and CBD normal, no signs of obstructing gallstone - Lipase appears to have plateued since two days ago; elevation most likely multifactorial, 2/2 alcohol abuse and appendicitis s/p appendectomy - No other signs/symptoms of acute pancreatitis 2. Appendicitis - Patient is s/p appendectomy POD 7 - Tolerating PO; reports BM this AM - No abdominal pain or tenderness - Surgery following, appreciate recs 3. Hepatitis B - New diagnosis of hepatitis B during this admission - Patient denies any IVDU, no history of blood transfusion - Will obtain Hep B surface AB and core total to determine stage of HBV infection - Patient will require outpatient follow up with PCP or hepatology for monitoring and possible treatment 4. Transaminitis - Likely 2/2 combined viral and alcoholic hepatitis - Trending down - Will require outpatient follow up with PCP or GI for repeat labs 5. Alcohol abuse - Discussed abstinence at length - Patient does not appear to be actively withdrawing at this time - On PRN ativan; MVI and thiamine Patient seen, discussed, and reviewed with attending <Singh Waddell - Last Filed: 01/19/17 21:19> Results - Vital Signs Recent Vital Signs: Last Vital Signs Temp 98.1 F 01/19/17 15:25 Pulse 70 01/19/17 15:25 Resp 20 01/19/17 15:25 BP 120/76 01/19/17 15:25 Pulse Ox 99 01/19/17 15:25 - Labs Result Diagrams: 01/19/17 07:06 01/19/17 07:06 Labs: Laboratory Results - last 24 hr 01/19/17 01/19/17 01/19/17 07:06 07:06 14:06 WBC 6.5 RBC 4.63 Hgb 16.0 Hct 46.4 MCV 100.3 H MCH 34.6 H MCHC 34.5 RDW 13.6 Plt Count 270 MPV 9.4 Neut % (Auto) 57.2 Lymph % (Auto) 21.8 [place] % (Auto) 17.0 H Eos % (Auto) 2.5 Baso % (Auto) 1.5 Neut # 3.7 Lymph # 1.4 [place] # 1.1 H Eos # 0.2 Baso # 0.1 Sodium 137 Potassium 4.2 Chloride 99 Carbon Dioxide 26 Anion Gap 16 BUN 15 Creatinine 0.8 Est GFR ( Amer) > 60 Est GFR (Non-Af Amer) > 60 Random Glucose 94 Calcium 9.5 Total Bilirubin 1.1 AST 103 H ALT 282 H Alkaline Phosphatase 70 Total Protein 8.9 H Albumin 4.3 Globulin 4.6 H Albumin/Globulin Ratio 0.9 L Triglycerides 112 Cholesterol 194 LDL Cholesterol Direct 128 HDL Cholesterol 52 Hepatitis A Ab Total Antibody pos Hep Bs Antibody 01/19/17 14:06 WBC RBC Hgb Hct MCV MCH MCHC RDW Plt Count MPV Neut % (Auto) Lymph % (Auto) [place] % (Auto) Eos % (Auto) Baso % (Auto) Neut # Lymph # [place] # Eos # Baso # Sodium Potassium Chloride Carbon Dioxide Anion Gap BUN Creatinine Est GFR ( Amer) Est GFR (Non-Af Amer) Random Glucose Calcium Total Bilirubin AST ALT Alkaline Phosphatase Total Protein Albumin Globulin Albumin/Globulin Ratio Triglycerides Cholesterol LDL Cholesterol Direct HDL Cholesterol Hepatitis A Ab Total Hep Bs Antibody Negative Attending/Attestation - Attestation I have personally seen and examined this patient.: Yes I have fully participated in the care of the patient.: Yes I have reviewed all pertinent clinical information: Yes Notes (Text): 01/19/17 10:59 36 year old male with with h/o Etoh abuse admitted with acute appendicitis s/p appendectomy, also with chronic hepatitis B and hyperlipasemia. 1. Hyperlipasemia 2. Chronic hepatitis B 3. Elevated LFTs Plan: -no evidence of pancreatitis based on imaging/clinical history, doesn't meet criteria -may have macrolipasemia -may be due to alcohol abuse or acute appendicitis -no further eval at this time -would recommend outpatient follow up for eval/rx of hepatitis b
[2017-01-19] MEDS: Multiple Vitamins Tab PO SCH (10:16)
--- NOTE | 2017-01-19 13:11 | CP.PCM.DIS ---
<Jazmyne Araujo - Last Filed: 01/19/17 13:11> Provider - Provider Date of Admission: 01/12/17 03:30 Attending physician: Roula Silva DO Primary care physician: Non [facility] Provider Consults: Surg: Amari Psych: Ozden Gi: Lance Time Spent in preparation of Discharge (in minutes): 40 Hospital Course - Lab Results Lab Results: Micro Results 01/12/17 18:14 Appendix Gram Stain - Final 01/12/17 18:14 Appendix Wound Culture - Final No Growth Most Recent Lab Values WBC 6.5 K/uL (4.8-10.8) 01/19/17 07:06 RBC 4.63 Mil/uL (4.40-5.90) 01/19/17 07:06 Hgb 16.0 g/dL (12.0-18.0) 01/19/17 07:06 Hct 46.4 % (35.0-51.0) 01/19/17 07:06 MCV 100.3 fL (80.0-94.0) H 01/19/17 07:06 MCH 34.6 pg (27.0-31.0) H 01/19/17 07:06 MCHC 34.5 g/dL (33.0-37.0) 01/19/17 07:06 RDW 13.6 % (11.5-14.5) 01/19/17 07:06 Plt Count 270 K/uL (130-400) 01/19/17 07:06 MPV 9.4 fL (7.2-11.7) 01/19/17 07:06 Neut % (Auto) 57.2 % (50.0-75.0) 01/19/17 07:06 Lymph % (Auto) 21.8 % (20.0-40.0) 01/19/17 07:06 Terrell % (Auto) 17.0 % (0.0-10.0) H 01/19/17 07:06 Eos % (Auto) 2.5 % (0.0-4.0) 01/19/17 07:06 Baso % (Auto) 1.5 % (0.0-2.0) 01/19/17 07:06 Neut # 3.7 K/uL (1.8-7.0) 01/19/17 07:06 Lymph # 1.4 K/uL (1.0-4.3) 01/19/17 07:06 Terrell # 1.1 K/uL (0.0-0.8) H 01/19/17 07:06 Eos # 0.2 K/uL (0.0-0.7) 01/19/17 07:06 Baso # 0.1 K/uL (0.0-0.2) 01/19/17 07:06 Neutrophils % (Manual) 61 % (50-75) 01/16/17 08:45 Band Neutrophils % 1 % (0-2) 01/13/17 06:45 Lymphocytes % (Manual) 23 % (20-40) 01/16/17 08:45 Monocytes % (Manual) 12 % (0-10) H 01/16/17 08:45 Eosinophils % (Manual) 2 % (0-4) 01/16/17 08:45 Basophils % (Manual) 1 % (0-2) 01/16/17 08:45 Myelocytes % 1 % (0-0) H 01/16/17 08:45 Platelet Estimate Normal (NORMAL) 01/16/17 08:45 Large Platelets Present 01/16/17 08:45 RBC Morphology Normal 01/13/17 06:45 Anisocytosis (manual) Slight 01/16/17 08:45 Macrocytosis (manual) Slight 01/16/17 08:45 PT 12.1 SECONDS (9.7-12.2) 01/13/17 06:45 INR 1.1 01/13/17 06:45 APTT 26 SECONDS (21-34) 01/13/17 06:45 Sodium 137 mmol/L (132-148) 01/19/17 07:06 Potassium 4.2 mmol/L (3.6-5.2) 01/19/17 07:06 Chloride 99 mmol/L (98-107) 01/19/17 07:06 Carbon Dioxide 26 mmol/L (22-30) 01/19/17 07:06 Anion Gap 16 (10-20) 01/19/17 07:06 BUN 15 mg/dL (9-20) 01/19/17 07:06 Creatinine 0.8 mg/dL (0.8-1.5) 01/19/17 07:06 Est GFR ( Amer) > 60 01/19/17 07:06 Est GFR (Non-Af Amer) > 60 01/19/17 07:06 Random Glucose 94 mg/dL (75-110) 01/19/17 07:06 Hemoglobin A1c 4.6 % (4.2-6.5) 01/12/17 11:12 Calcium 9.5 mg/dl (8.6-10.4) 01/19/17 07:06 Phosphorus 4.3 mg/dL (2.5-4.5) 01/16/17 08:45 Magnesium 2.0 mg/dL (1.6-2.3) 01/16/17 08:45 Total Bilirubin 1.1 mg/dL (0.2-1.3) 01/19/17 07:06 AST 103 U/L (17-59) H 01/19/17 07:06 ALT 282 U/L (21-72) H 01/19/17 07:06 Alkaline Phosphatase 70 U/L (38-126) 01/19/17 07:06 Total Protein 8.9 g/dL (6.3-8.3) H 01/19/17 07:06 Albumin 4.3 g/dL (3.5-5.0) 01/19/17 07:06 Globulin 4.6 gm/dL (2.2-3.9) H 01/19/17 07:06 Albumin/Globulin Ratio 0.9 (1.0-2.1) L 01/19/17 07:06 Triglycerides 112 mg/dL (0-149) 01/19/17 07:06 Cholesterol 194 mg/dL (0-199) 01/19/17 07:06 LDL Cholesterol Direct 128 mg/dL (0-129) 01/19/17 07:06 HDL Cholesterol 52 mg/dL (30-70) 01/19/17 07:06 Amylase 188 U/L (30-110) H 01/18/17 07:05 Lipase 1385 U/L (23-300) H 01/18/17 07:05 Urine Color [place] (YELLOW) 01/12/17 00:38 Urine Clarity Clear (Clear) 01/12/17 00:38 Urine pH 7.0 (5.0-8.0) 01/12/17 00:38 Ur Specific [place] 1.026 (1.003-1.030) 01/12/17 00:38 Urine Protein 2+ mg/dL (NEGATIVE) H 01/12/17 00:38 Urine Glucose (UA) Normal mg/dL (Normal) 01/12/17 00:38 Urine Ketones 1+ mg/dL (NEGATIVE) H 01/12/17 00:38 Urine Blood Negative (NEGATIVE) 01/12/17 00:38 Urine Nitrate Negative (NEGATIVE) 01/12/17 00:38 Urine Bilirubin Negative (NEGATIVE) 01/12/17 00:38 Urine Urobilinogen 4.0 mg/dL (0.2-1.0) 01/12/17 00:38 Ur Leukocyte Esterase Neg Rosie/uL (Negative) 01/12/17 00:38 Urine RBC (Auto) 3 /hpf (0-3) 01/12/17 00:38 Ur Squamous Epith Cells < 1 /hpf (0-5) 01/12/17 00:38 Urine Opiates Screen Negative (NEGATIVE) 01/12/17 00:38 Urine Methadone Screen Negative (NEGATIVE) 01/12/17 00:38 Ur Barbiturates Screen Negative (NEGATIVE) 01/12/17 00:38 Ur Phencyclidine Scrn Negative (NEGATIVE) 01/12/17 00:38 Ur Amphetamines Screen Negative (NEGATIVE) 01/12/17 00:38 U Benzodiazepines Scrn Negative (NEGATIVE) 01/12/17 00:38 U Oth Cocaine Metabols Negative (NEGATIVE) 01/12/17 00:38 U Cannabinoids Screen Negative (NEGATIVE) 01/12/17 00:38 Alcohol, Quantitative < 10 mg/dl (0-10) 01/12/17 00:38 Hepatitis A IgM Ab Negative (NEGATIVE) 01/12/17 11:12 Hep Bs Antigen Positive (NEGATIVE) 01/12/17 11:12 Hep Bs Ag Neutralizatn Confirmed positive H 01/12/17 11:12 Hep B Core IgM Ab Negative (NEGATIVE) 01/12/17 11:12 Hepatitis C Antibody Negative (NEGATIVE) 01/12/17 11:12 HIV 1&2 Antibody Screen Negative (NEGATIVE) 01/12/17 11:12 - Date & Time of H&P Date of H&P: 01/19/17 Time of H&P: 13:14 Discharge Exam - Head Exam Head Exam: ATRAUMATIC, NORMOCEPHALIC - Eye Exam Eye Exam: EOMI, Normal appearance - ENT Exam ENT Exam: Mucous Membranes Moist - Neck Exam Additional comments: No lymphadenopathy - Respiratory Exam Respiratory Exam: Clear to PA & Lateral, NORMAL BREATHING PATTERN. absent: Accessory Muscle Use - Cardiovascular Exam Cardiovascular Exam: RRR, +S1, +S2 - GI/Abdominal Exam GI & Abdominal Exam: Normal Bowel Sounds, Soft. absent: Organomegaly, Tenderness - Back Exam Back exam: absent: CVA tenderness (L) - Neurological Exam Neurological exam: Alert, Oriented x3 - Psychiatric Exam Psychiatric exam: Normal Affect, Normal Mood Discharge Plan - Follow Up Plan Condition: FAIR Disposition: HOME/ ROUTINE Instructions: Appendicitis (DC), Pancreatitis (DC), Open Appendectomy (DC), Laparoscopic Appendectomy (DC), Alcohol Intoxication (DC), Abuse of Alcohol (DC) Additional Instructions: see post op instructions / Rx Please follow up with a sleeve wheel maker (stomach and liver doctor), for further workup and management of your hepatitis B. If you do not have insurance, please come to our clinic to get a referral to see a stomach specialist. Patient is medically stable for discharge. Per GI, patient is stable from their standpoint. Patient recomended to follow [facility] at the [facility] on 01[facility]20[facility]17 at 9am. Patient recomended to follow up with surgeon this Tuesday for staple removal. Patient counseled for Alcohol cessastion and to be provided AA resources upon discharge. Patient recomended for GI referral when established care at [facility] for hepatitis B. Patient recomended to follow up with GI in 2 weeks. Por favor, dana un seguimiento con un gastroenterlogo (mdico de estmago y de hgado) para seguir trabajando y controlar escobar hepatitis B. Si no tiene seguro, acuda a nuestra clnica para obtener chi referencia para fam a un especialista en estmago. Referrals: [facility] [Outside] - 1 Day (Patient is walk-in appt tomorrow. ) Non [facility] Provider, [Primary Care Provider] - Jose J Fitzpatrick MD [Staff Provider] - 01/21/17 Singh Waddell MD [Staff Provider] - 2 Weeks <Roula Silva V - Last Filed: 01/19/17 17:31> Provider - Provider Date of Admission: 01/12/17 03:30 Attending physician: Roula Silva DO Primary care physician: Non [facility] Provider Hospital Course - Lab Results Lab Results: Micro Results 01/12/17 18:14 Appendix Gram Stain - Final 01/12/17 18:14 Appendix Wound Culture - Final No Growth Most Recent Lab Values WBC 6.5 K/uL (4.8-10.8) 01/19/17 07:06 RBC 4.63 Mil/uL (4.40-5.90) 01/19/17 07:06 Hgb 16.0 g/dL (12.0-18.0) 01/19/17 07:06 Hct 46.4 % (35.0-51.0) 01/19/17 07:06 MCV 100.3 fL (80.0-94.0) H 01/19/17 07:06 MCH 34.6 pg (27.0-31.0) H 01/19/17 07:06 MCHC 34.5 g/dL (33.0-37.0) 01/19/17 07:06 RDW 13.6 % (11.5-14.5) 01/19/17 07:06 Plt Count 270 K/uL (130-400) 01/19/17 07:06 MPV 9.4 fL (7.2-11.7) 01/19/17 07:06 Neut % (Auto) 57.2 % (50.0-75.0) 01/19/17 07:06 Lymph % (Auto) 21.8 % (20.0-40.0) 01/19/17 07:06 Terrell % (Auto) 17.0 % (0.0-10.0) H 01/19/17 07:06 Eos % (Auto) 2.5 % (0.0-4.0) 01/19/17 07:06 Baso % (Auto) 1.5 % (0.0-2.0) 01/19/17 07:06 Neut # 3.7 K/uL (1.8-7.0) 01/19/17 07:06 Lymph # 1.4 K/uL (1.0-4.3) 01/19/17 07:06 Terrell # 1.1 K/uL (0.0-0.8) H 01/19/17 07:06 Eos # 0.2 K/uL (0.0-0.7) 01/19/17 07:06 Baso # 0.1 K/uL (0.0-0.2) 01/19/17 07:06 Neutrophils % (Manual) 61 % (50-75) 01/16/17 08:45 Band Neutrophils % 1 % (0-2) 01/13/17 06:45 Lymphocytes % (Manual) 23 % (20-40) 01/16/17 08:45 Monocytes % (Manual) 12 % (0-10) H 01/16/17 08:45 Eosinophils % (Manual) 2 % (0-4) 01/16/17 08:45 Basophils % (Manual) 1 % (0-2) 01/16/17 08:45 Myelocytes % 1 % (0-0) H 01/16/17 08:45 Platelet Estimate Normal (NORMAL) 01/16/17 08:45 Large Platelets Present 01/16/17 08:45 RBC Morphology Normal 01/13/17 06:45 Anisocytosis (manual) Slight 01/16/17 08:45 Macrocytosis (manual) Slight 01/16/17 08:45 PT 12.1 SECONDS (9.7-12.2) 01/13/17 06:45 INR 1.1 01/13/17 06:45 APTT 26 SECONDS (21-34) 01/13/17 06:45 Sodium 137 mmol/L (132-148) 01/19/17 07:06 Potassium 4.2 mmol/L (3.6-5.2) 01/19/17 07:06 Chloride 99 mmol/L (98-107) 01/19/17 07:06 Carbon Dioxide 26 mmol/L (22-30) 01/19/17 07:06 Anion Gap 16 (10-20) 01/19/17 07:06 BUN 15 mg/dL (9-20) 01/19/17 07:06 Creatinine 0.8 mg/dL (0.8-1.5) 01/19/17 07:06 Est GFR ( Amer) > 60 01/19/17 07:06 Est GFR (Non-Af Amer) > 60 01/19/17 07:06 Random Glucose 94 mg/dL (75-110) 01/19/17 07:06 Hemoglobin A1c 4.6 % (4.2-6.5) 01/12/17 11:12 Calcium 9.5 mg/dl (8.6-10.4) 01/19/17 07:06 Phosphorus 4.3 mg/dL (2.5-4.5) 01/16/17 08:45 Magnesium 2.0 mg/dL (1.6-2.3) 01/16/17 08:45 Total Bilirubin 1.1 mg/dL (0.2-1.3) 01/19/17 07:06 AST 103 U/L (17-59) H 01/19/17 07:06 ALT 282 U/L (21-72) H 01/19/17 07:06 Alkaline Phosphatase 70 U/L (38-126) 01/19/17 07:06 Total Protein 8.9 g/dL (6.3-8.3) H 01/19/17 07:06 Albumin 4.3 g/dL (3.5-5.0) 01/19/17 07:06 Globulin 4.6 gm/dL (2.2-3.9) H 01/19/17 07:06 Albumin/Globulin Ratio 0.9 (1.0-2.1) L 01/19/17 07:06 Triglycerides 112 mg/dL (0-149) 01/19/17 07:06 Cholesterol 194 mg/dL (0-199) 01/19/17 07:06 LDL Cholesterol Direct 128 mg/dL (0-129) 01/19/17 07:06 HDL Cholesterol 52 mg/dL (30-70) 01/19/17 07:06 Amylase 188 U/L (30-110) H 01/18/17 07:05 Lipase 1385 U/L (23-300) H 01/18/17 07:05 Urine Color [place] (YELLOW) 01/12/17 00:38 Urine Clarity Clear (Clear) 01/12/17 00:38 Urine pH 7.0 (5.0-8.0) 01/12/17 00:38 Ur Specific [place] 1.026 (1.003-1.030) 01/12/17 00:38 Urine Protein 2+ mg/dL (NEGATIVE) H 01/12/17 00:38 Urine Glucose (UA) Normal mg/dL (Normal) 01/12/17 00:38 Urine Ketones 1+ mg/dL (NEGATIVE) H 01/12/17 00:38 Urine Blood Negative (NEGATIVE) 01/12/17 00:38 Urine Nitrate Negative (NEGATIVE) 01/12/17 00:38 Urine Bilirubin Negative (NEGATIVE) 01/12/17 00:38 Urine Urobilinogen 4.0 mg/dL (0.2-1.0) 01/12/17 00:38 Ur Leukocyte Esterase Neg Rosie/uL (Negative) 01/12/17 00:38 Urine RBC (Auto) 3 /hpf (0-3) 01/12/17 00:38 Ur Squamous Epith Cells < 1 /hpf (0-5) 01/12/17 00:38 Urine Opiates Screen Negative (NEGATIVE) 01/12/17 00:38 Urine Methadone Screen Negative (NEGATIVE) 01/12/17 00:38 Ur Barbiturates Screen Negative (NEGATIVE) 01/12/17 00:38 Ur Phencyclidine Scrn Negative (NEGATIVE) 01/12/17 00:38 Ur Amphetamines Screen Negative (NEGATIVE) 01/12/17 00:38 U Benzodiazepines Scrn Negative (NEGATIVE) 01/12/17 00:38 U Oth Cocaine Metabols Negative (NEGATIVE) 01/12/17 00:38 U Cannabinoids Screen Negative (NEGATIVE) 01/12/17 00:38 Alcohol, Quantitative < 10 mg/dl (0-10) 01/12/17 00:38 Hepatitis A IgM Ab Negative (NEGATIVE) 01/12/17 11:12 Hepatitis A Ab Total Antibody pos (NEGATIVE) 01/19/17 14:06 Hep Bs Antigen Positive (NEGATIVE) 01/12/17 11:12 Hep Bs Ag Neutralizatn Confirmed positive H 01/12/17 11:12 Hep Bs Antibody Negative (NEGATIVE) 01/19/17 14:06 Hep B Core IgM Ab Negative (NEGATIVE) 01/12/17 11:12 Hepatitis C Antibody Negative (NEGATIVE) 01/12/17 11:12 HIV 1&2 Antibody Screen Negative (NEGATIVE) 01/12/17 11:12 Attending/Attestation - Attestation I have personally seen and examined this patient.: Yes I have fully participated in the care of the patient.: Yes I have reviewed all pertinent clinical information, including history, physical exam and plan: Yes Notes (Text): Patient seen, examined and case discussed with day-time resident. Patient seen at bedside this morning. Patient denies acute complaints. Patient admits today he is a heavy alcohol user prior to coming to the hospital. Advised he should not be drinking in this manner. Patient recommended for follow -up for AA to maintain alcohol cessation. Patient is POD 7 from open appendectomy 01/12/17. Patient to follow-up with Dr. Fitzpatrick on Tuesday at the office.. Patient does not clinically appear in acute distress. Abdomen exam is benign. Negative Bryant's sign. Abdominal US (01/18/17): echogenic liver may be seen in setting of hepatic parenchymal disease or fatty infiltration. Patient ordered for additional Hepatitis studies per GI that will need to be followed upon discharge. Discharge order and discharge instructions discussed with day-time resident and patient at bedside. Patient is medically stable for discharge. Per GI, patient is stable from their standpoint. Patient recomended to follow up at the [facility] on 01/20/17 at 9am. Patient recomended to follow up with surgeon this Tuesday for staple removal. Patient counseled for Alcohol cessation and to be provided AA resources upon discharge. Patient recommended to follow-up with GI in 2 weeks from hospitalization. Patient will need referral to GI when establish care at the [facility] and management for hepatitis B and repeat liver function tests in a week to see if normalizing. Patient recommended to follow up with GI in 2 weeks. Patient to follow-up with postoperative with surgery upon discharge this upcoming january 21. patient has jonathan from procedure that will need to be removed. No new medication provided upon discharge. This is summary of patient's hospitalization. Please see EMR for further details. Discharge Diagnoses: 1). S/P Open Appendectomy 01/12/17-->Stable * Surgeon Dr. Fitzpatrick on case * Patient to follow-up with postoperative with surgery upon discharge this upcoming january 21. patient has jonathan from procedure that will need to be removed. 2). Alcohol Abuse; Alcohol Withdrawal-->resolved * He completed Day #5/5 of Ativan Taper and as he is eating and tolerating diet. * Patient is out of range for acute DTs since its about 7 days since surgery; suspected last drink NO longer tremulous * per psych, patient is not interested in rehab; signed off on 01/17 * Recommended to alcohol cessation including AA 3). Elevated LFTs-->Resolving * patient is positive for Hepatitis B-->will need follow-up with GI as outpatient * Hepatitis B Antigen: positive * Hepatitis B Surface ordered and collected prior to discharge * Hep B Core IgM: negative * Hepatitis C: negative * Hepatitis A Igm: negative * Abdominal US (01/18/17): echogenic liver may be seen in setting of hepatic parenchymal disease or fatty infiltration * Liver function tests are downtrending * However patient's GI exam is benign and CT Abdomen/Pelvis on presentation did not show any acute pathology * Repeat CT Abdomen/Pelvis 01/17/17 did NOT show any acute pathology (NO pancreatitis) and did show Hepatomegly/Steatosis * Patient recommended to follow-up with GI in 2 weeks from hospitalization. Patient will need referral to GI when establish care at the [facility] and management for hepatitis B and repeat liver function tests in a week to see if normalizing 4). Hepatitis B +-->chronic-->f/u outpatient * patient is positive for Hepatitis B-->will need follow-up with GI as outpatient * Hepatitis B Antigen: positive * Hepatitis B Surface ordered and collected prior to discharge * Hep B Core IgM: negative * Hepatitis C: negative * Hepatitis A Igm: negative * He will need to follow up with [facility] upon discharge. * Patient recommended to follow-up with GI in 2 weeks from hospitalization. Patient will need referral to GI when establish care at the [facility] and management for hepatitis B 5) Elevated Lipase-->resolved * Per review of EMR, consideration for appendicitis and pancreatitis on admission * Patient is tolerating diet and abdominal exam appears benign * Repeat CT Abdomen/Pelvis 01/17/17 did NOT show any acute pathology (NO pancreatitis) and did show Hepatomegly/Steatosis * Per discussion with my colleague and surgery, did not appear necrotic during surgery 6) Prophylactic care * Ambulatory
[2017-01-19 15:27] VITALS: BP 120/76; PULSE 70; TEMP 98.1
== END 2017-01-19 17:25 | disposition home or self-care (01) | DRG 342 ==
LOC: C.ER 23:54 → SUPCPDRO 23:54 → C.6T 01-12 03:30
PROVIDERS: ADMIT Family Medicine; ATTEND Hospitalist
PROC: 0DTJ0ZZ Resection of Appendix, Open Approach (ICD-10-PCS; principal; 2017-01-12 12:45)
PROC: HZ2ZZZZ Detoxification Services for Substance Abuse Treatment (ICD-10-PCS; 2017-01-13)
DX: K35.80 Unspecified acute appendicitis (principal); F10.231 Alcohol dependence with withdrawal delirium; K76.0 Fatty (change of) liver, not elsewhere classified; B18.1 Chronic viral hepatitis B without delta-agent; F17.210 Nicotine dependence, cigarettes, uncomplicated; Z78.1 Physical restraint status; R79.89 Other specified abnormal findings of blood chemistry; Y90.0 Blood alcohol level of less than 20 mg/100 ml

== ENCOUNTER 2017-01-21 09:30 | Emergency (ER) | payer MEDICAID, OTHER ==
[2017-01-21 09:38] VITALS: PULSE 65; O2SAT 100
[2017-01-21] MEDS ORDERED: Bacitracin 500 Units/gm Oint Foilpak UD TOP ONE (10:01)
--- NOTE | 2017-01-21 10:03 | C.PDOC ---
History Of Present Illness 36 y/o male presents to the ED for staple removal from appendectomy scar. He states he had an appendectomy done [address] Fitzpatrick. He denies fever, erythema, discharge from the wound. Patient has not followed up with surgeon post-operatively. PMD: None provided Time Seen by Provider: 01/21/17 09:48 Chief Complaint (Nursing): Suture/Staple Removal History Per: Patient History/Exam Limitations: no limitations Onset/Duration Of Symptoms: Other (Surgical wound x 2 weeks) Current Symptoms Are (Timing): Better Location Of Injury: Right: Abdomen Severity: None Past Medical History Reviewed: Historical Data, Nursing Documentation, Vital Signs Vital Signs: Last Vital Signs Temp 98.1 F 01/21/17 10:38 Pulse 65 01/21/17 10:38 Resp 20 01/21/17 10:38 BP 125/80 01/21/17 10:38 Pulse Ox 100 01/21/17 11:17 - Medical History PMH: No Chronic Diseases Surgical History: [facility] [place] [facility] DETOXIFICATION SERVICES FOR SUBSTANCE ABUSE TREATMENT (01/12/17) RESECTION OF APPENDIX, OPEN APPROACH (01/12/17) Family History: States: No Known Family Hx - Social History Hx Alcohol Use: Yes Hx Substance Use: No - Immunization History Hx Tetanus Toxoid Vaccination: No Hx Influenza Vaccination: No Hx Pneumococcal Vaccination: No Review Of Systems Except As Marked, All Systems Reviewed And Found Negative. Constitutional: Negative for: Fever Cardiovascular: Negative for: Chest Pain Respiratory: Negative for: Cough, Shortness of Breath Gastrointestinal: Negative for: Nausea, Vomiting, Abdominal Pain Skin: Positive for: Other (Healing surgical wound). Negative for: Rash Physical Exam - Physical Exam Appears: Well, Non-toxic, No Acute Distress Skin: Normal Color, Warm, Dry, No Rash Oral Mucosa: Moist Cardiovascular: Rhythm Regular Respiratory: Normal Breath Sounds, No Rales, No Rhonchi, No Wheezing Gastrointestinal/Abdominal: Normal Exam, Bowel Sounds, Soft, No Tenderness, Other (RLQ- 6 intact jonathan without erythema/discharge, well healing, nontender , without fluctuance/induration) Neurological/Psych: Oriented x3 ED Course And Treatment O2 Sat by Pulse Oximetry: 100 (RA) Pulse Ox Interpretation: Normal Progress Note: Patient reassurred that wound is healing well. Bacitracin and dressing applied to area. He was instructed to follow up with his surgeon in 1- 2 days for wound check/staple removal. He understands he should return to ED if he has any concerning symptoms. Disposition Counseled Patient/Family Regarding: Diagnosis, Need For Followup - Disposition Referrals: Jose J Fitzpatrick MD [Staff Provider] - [facility] at [facility] [Outside] Disposition: HOME/ ROUTINE Disposition Time: 10:05 Condition: GOOD Additional Instructions: NECESITA SEGUIR CON IBARRA CIRUJANO DR FITZPATRICK, O EN LA CLNICA DE CIRUGA PARA LA EVALUACIN Y ELIMINACIN DE GRAPAS REGRESE AL MARLENE DE EMERGENCIA SI TIENE ALGN SNTOMA PREOCUPANTE YOU NEED TO FOLLOW UP WITH YOUR SURGEON DR FITZPATRICK, OR IN SURGERY CLINIC FOR EVALUATION AND REMOVAL OF JONATHAN RETURN TO EMERGENCY ROOM IF YOU HAVE ANY CONCERNING SYMPTOMS Forms: [facility] (Faroese), General Discharge Instructions Print Language: [place]OUR[place]ISH - POA Present On Arrival: None - Clinical Impression Clinical Impression: Visit for wound check - Scribe Statement The provider has reviewed the documentation as recorded by the Scribbennett Hicks All medical record entries made by the Scribe were at my direction and personally dictated by me. I have reviewed the chart and agree that the record accurately reflects my personal performance of the history, physical exam, medical decision making, and the department course for this patient. I have also personally directed, reviewed, and agree with the discharge instructions and disposition.
[2017-01-21] MEDS ORDERED: Bacitracin 500 Units/gm Oint Foilpak UD ONE (10:23)
[2017-01-21 10:39] VITALS: BP 125/80; RESP 20; TEMP 98.1
== END 2017-01-21 10:39 | disposition home or self-care (01) ==
LOC: C.ER 09:30
DX: Z48.01 Encounter for change or removal of surgical wound dressing (principal)

== ENCOUNTER 2017-05-17 14:58 | Emergency (ER) | payer MEDICAID, OTHER ==
[2017-05-17 15:05] VITALS: BMI 31.6
[2017-05-17 15:07] VITALS: BP 156/97; PULSE 82; RESP 18; TEMP 98.8; O2SAT 100
--- NOTE | 2017-05-17 17:09 | C.PDOC ---
History Of Present Illness patient was not at bed side when i went to interview patient. nurse staff notified. Time Seen by Provider: 05/17/17 16:21 Chief Complaint (Nursing): Substance Abuse Past Medical History Vital Signs: Last Vital Signs Temp 98.8 F 05/17/17 15:07 Pulse 82 05/17/17 15:07 Resp 18 05/17/17 15:07 BP 156/97 H 05/17/17 15:07 Pulse Ox 100 05/17/17 15:07 - Medical History PMH: Denies: Chronic Kidney Disease Surgical History: Appendectomy - [facility] Procedures DETOXIFICATION SERVICES FOR SUBSTANCE ABUSE TREATMENT (01/12/17) RESECTION OF APPENDIX, OPEN APPROACH (01/12/17) Family History: States: Unknown Family Hx - Social History Hx Alcohol Use: Yes Hx Substance Use: No - Immunization History Hx Tetanus Toxoid Vaccination: No Hx Influenza Vaccination: No Hx Pneumococcal Vaccination: No ED Course And Treatment O2 Sat by Pulse Oximetry: 100 Disposition - Disposition Disposition: ELOPEMENT - ER ONLY Disposition Time: 17:09 Condition: UNKNOWN Forms: [facility] (Liberian) - Clinical Impression Clinical Impression: Medical assessment
== END 2017-05-17 17:05 | disposition left against medical advice (07) ==
LOC: C.ER 14:58
DX: Z04.8 Encounter for examination and observation for other specified reasons (principal)

== ENCOUNTER 2018-05-17 15:16 | Emergency (ER) | payer OTHER ==
[2018-05-17 15:36] VITALS: BP 136/77; PULSE 80; RESP 20; TEMP 98.5; O2SAT 98; BMI 25.8
--- NOTE | 2018-05-17 16:16 | C.PDOC ---
History Of Present Illness This is a 38 year old male with PMHx of Hepatitis B infection and alcohol use disorder who presents for bilateral hand tremors. Patient admits he wants to stop drinking. He has been drinking daily for the past 5 years - 1 bottle of tequila per day. He reports his last drink was 2 weeks ago. He lives with his and 4 children, and works as a marble contractor. He denied any headaches, seizure activity, nausea, vomiting, or diarrhea. Patient wants a pill to help him stop drinking. He does not want detox. During conversation, patient is having visual hallucinations - believes a friend of his is present in the room on his left (when his cousin is sitting at bedside on the patient's right). Patient reports he wants to stop drinking but will only stay if he can get the pills that will help him do so. <Claudia Patel - Last Filed: 05/17/18 16:35> History Per: Patient, Family Onset/Duration Of Symptoms: Days Current Symptoms Are (Timing): Still Present Modifying Factor(s): Alcohol Severity: Mild <Claudia Patel - Last Filed: 05/17/18 16:35> <Hong Delgado DO - Last Filed: 05/17/18 18:53> Time Seen by Provider: 05/17/18 16:10 Chief Complaint (Nursing): Substance Abuse Past Medical History Vital Signs: Last Vital Signs Temp 98.5 F 05/17/18 15:33 Pulse 80 05/17/18 15:33 Resp 20 05/17/18 15:33 BP 136/77 05/17/18 15:33 Pulse Ox 98 05/17/18 15:33 - Medical History PMH: Denies: Chronic Kidney Disease Surgical History: Appendectomy - [facility] Procedures DETOXIFICATION SERVICES FOR SUBSTANCE ABUSE TREATMENT (01/12/17) RESECTION OF APPENDIX, OPEN APPROACH (01/12/17) Family History: States: Unknown Family Hx - Social History Hx Alcohol Use: Yes Hx Substance Use: No - Immunization History Hx Tetanus Toxoid Vaccination: No Hx Influenza Vaccination: No Hx Pneumococcal Vaccination: No <Claudia Patel - Last Filed: 05/17/18 16:35> Vital Signs: Last Vital Signs Temp 98.5 F 05/17/18 15:33 Pulse 80 05/17/18 15:33 Resp 20 05/17/18 15:33 BP 136/77 05/17/18 15:33 Pulse Ox 98 05/17/18 16:52 - [facility] Procedures DETOXIFICATION SERVICES FOR SUBSTANCE ABUSE TREATMENT (01/12/17) RESECTION OF APPENDIX, OPEN APPROACH (01/12/17) <Hong Delgado DO - Last Filed: 05/17/18 18:53> Review Of Systems Constitutional: Negative for: Fever, Chills Cardiovascular: Negative for: Chest Pain Respiratory: Negative for: Cough, Shortness of Breath Gastrointestinal: Negative for: Nausea, Vomiting, Abdominal Pain, Diarrhea Genitourinary: Negative for: Dysuria, Frequency, Incontinence, Hematuria Neurological: Negative for: Weakness, Numbness <Claudia Patel - Last Filed: 05/17/18 16:35> Physical Exam - Physical Exam Appears: Unkempt Skin: Normal Color, Warm, Dry Head: Atraumatic, Normacephalic Eye(s): bilateral: Scleral Icterus Tongue: Normal Appearing, No Bite, No Laceration Cardiovascular: Rhythm Regular Respiratory: Normal Breath Sounds, No Decreased Breath Sounds, No Wheezing Gastrointestinal/Abdominal: Normal Exam, Bowel Sounds, Soft, No Tenderness Neurological/Psych: Oriented x3, Normal Speech, Normal Cognition <Claudia Patel - Last Filed: 05/17/18 16:35> ED Course And Treatment O2 Sat by Pulse Oximetry: 98 <Claudia Patel - Last Filed: 05/17/18 16:35> Medical Decision Making Medical Decision Making: Alcohol Use Disorder seeking Detox - Patient refused detox, wants pills to make him stop drinking. Explained to the patient thoroughly, the only medications given are when the patient is actively withdrawing to prevent seizures. Detox was recommended and encouraged if patient truly wanted to stop drinking. He refused all blood work. Patient stated he did not want to stay or be admitted. Patient was made aware of the risks of signing out against medical advice, such as seizures, delirium tremens, cardiac arrest, or . Patient stated he understood this risks and would still like to leave. <Claudia Patel - Last Filed: 05/17/18 16:35> Disposition Doctor Will See Patient In The: Office - Disposition Disposition Time: 16:50 - POA Present On Arrival: None <Claudia Patel - Last Filed: 05/17/18 16:35> - Disposition Disposition Time: 16:30 <Hong Delgado DO - Last Filed: 05/17/18 18:53> - Disposition Referrals: Alcoholics Anonymous [Outside] [facility] [Outside] [facility] [Outside] Disposition: AGAINST MEDICAL ADVICE Condition: GOOD Additional Instructions: Patient refused detox, wants pills to make him stop drinking. Explained to the patient thoroughly, the only medications given are when the patient is actively withdrawing to prevent seizures. Detox was recommended and encouraged if patient truly wanted to stop drinking. He refused all blood work. Patient stated he did not want to stay or be admitted. Patient was made aware of the risks of signing out against medical advice, such as seizures, delirium tremens, cardiac arrest, or . Patient stated he understood this risks and would still like to leave. 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 ALIS has examined the patient and agrees with the treatment plan. <Hong Delgado DO - Last Filed: 05/17/18 18:53>
== END 2018-05-17 16:37 | disposition left against medical advice (07) ==
LOC: C.ER 15:16
DX: F10.10 Alcohol abuse, uncomplicated (principal); Y90.9 Presence of alcohol in blood, level not specified